=== PATIENT | female | born 1945 | race Caucasian/White ===

== ENCOUNTER 2022-08-11 13:03 | Observation (INO) ==
--- NOTE | 2022-08-11 14:11 | Emergency Department Note ---
Impression & Plan Fecal impaction, Acute dehydration, ANDRZEJ (acute kidney injury), Urinary tract infection ED Provider Note NAME: DEL KENNEDY AGE: 77 SEX: F : 1945 ARRIVES VIA: Ambulance INFORMANT: Patient, EMS, the patient's family members ED PROVIDER(S): Darrin Stubbs DO CHIEF COMPLAINT: Weakness HPI: The patient is a 77-year-old female who presented to the emergency department for an evaluation of generalized weakness. The patient has a history of underlying dementia. Apparently she has had trouble with ambulating especially over the course the last few weeks. She is also been noticing some rectal pain and constipation. Her significant other states she has had decreased p.o. intake as well. They have tried to give the patient over-the-c ounter medication without help. She has had no recent trauma as far as they know. The patient has had no changes to her medications. She is been compliant with her outpatient medications. There is been no fever or chest pain. ROS: See above HPI for pertinent positives & negatives. A total of 10 systems reviewed and were otherwise negative. PAST MEDICAL HISTORY: See Below PAST SURGICAL HISTORY: See Below FAMILY HISTORY: See Below SOCIAL HISTORY: See Below HOME MEDICATIONS: See Below ALLERGIES: See Below VITALS: See Below PHYSICAL EXAMINATION: GENERAL: Patient is awake and alert. The patient is nonanxious appearing. EYES: The conjunctivae are clear. The pupils are round and reactive. EARS, NOSE, MOUTH AND THROAT: The nose is without any evidence of any deformity. NECK: The neck is nontender and supple. RESPIRATORY: Normal respiratory effort is noted there is no evidence of wheezing rhonchi or rales CARDIOVASCULAR: Regular rate and rhythm noted there no murmurs rubs or gallops normal S1 normal S2. GASTROINTESTINAL: The abdomen is soft and mildly distended. There is diffuse tenderness to palpation but no guarding or rigidity. MUSCULOSKELETAL/EXTREMITIES: There is no evidence of gross deformity full range of motion is noted in the hips and shoulders. SKIN: There is no obvious evidence of any rash. There are no petechiae, pallor or cyanosis noted. NEUROLOGIC: Patient is awake and oriented to person and place. She recognizes her family members. Strength is symmetric but diminished. MEDICAL DECISION MAKING: The patient is a 77-year-old female who presented to the emergency department with family for an evaluation of decreased p.o. intake and lower abdominal tenderness. The patient's been having problems with constipation. Physical exam was not consistent with obstruction but the patient did have tenderness. I discussed the patient's laboratory and radiographic studies with the family. The patient was found to have a slight elevation in creatinine although I do not have a baseline to compare this to. She was treated with IV fluids. She was found to have fecal impaction on CT. I discussed his condition with the patient's . At this time he does not feel that he can manage the patient as an outpatient. He is concerned that she is not eating or drinking. He is worried that she is not doing well. For this reason I will discussed this case with the hospitalist. Triage Nursing notes reviewed. Prior medical records reviewed Vital Signs: reviewed and remarkable for hypotension. Differential diagnosis: Infection, dehydration, metabolic abnormality, hypo/hyperglycemia, electrolyte disturbance, anemia, hypoxia, cardiac sources, intracerebral event, toxicologic, neurologic, as well as other pathologies. ER treatment provided: See below Diagnostics interpreted by me: ECG: EKG was obtained in the emergency department. My interpretation is normal sinus rhythm at 78 bpm. There is no ectopy. There is no acute ST segment abnormalities noted. No previous tracing was available. Cardiac Monitoring: An order was placed for continuous cardiac monitoring. The monitor shows a rate of 82 bpm with sinus rhythm. Laboratory studies: As stated above and show below. Imaging studies: See below. Radiographic imaging was reviewed by myself Consultation(s): The case was discussed with the on-call [facility] hospitalist, Dr. Simmons. He will evaluate the patient in the emergency department for further management and disposition. Past Med/Surg History Medical History (Updated 08/11/22 @ 17:37 by Darrin Stubbs DO) Dementia GERD (gastroesophageal reflux disease) Hypertension Hypothyroid Social History Smoking Status: Never smoker Preferred Language: Fijian Feels Safe at Home: Yes Allergies Allergies Allergy/AdvReac Type Severity Reaction Status Date / Time Sulfa (Sulfonamide Allergy Unknown Verified 08/11/22 15:16 Antibiotics) paroxetine [From Paxil] AdvReac neuro Verified 08/11/22 15:16 complications cold Allergy Intermediate Hives Uncoded 08/11/22 15:16 Home Meds Home Medications Medication Instructions Recorded Confirmed aspirin 81 mg tablet,delayed 81 mg PO DAILY 08/11/22 08/11/22 release atorvastatin 10 mg tablet 10 mg PO DAILY 08/11/22 08/11/22 clonazepam 0.5 mg tablet 0.5 mg PO BID PRN Anxiety 08/11/22 08/11/22 galantamine 16 mg 24 hr 16 mg PO DAILY 08/11/22 08/11/22 capsule,extended release glycopyrrolate 2 mg tablet 2 mg PO BID 08/11/22 08/11/22 lisinopril 10 mg tablet 10 mg PO DAILY 08/11/22 08/11/22 memantine 10 mg tablet 10 mg PO DAILY 08/11/22 08/11/22 pantoprazole 40 mg tablet,delayed 40 mg PO DAILY 08/11/22 08/11/22 release trazodone 50 mg tablet 25 mg PO HS 08/11/22 08/11/22 vilazodone 20 mg tablet 20 mg PO DAILY 08/11/22 08/11/22 zolpidem 5 mg tablet 5 mg PO HS 08/11/22 08/11/22 Results & Data (ED) Vital Signs Vital Signs - 24 hr 08/11/22 13:21 08/11/22 13:35 08/11/22 14:05 Temperature 36.7 C Temperature Source Oral Pulse Rate 87 79 79 Pulse Rate [Left Finger] Pulse Rhythm Regular Pulse Rhythm [Left Finger] Pulse Strength Normal Pulse Strength [Left Finger] Respiratory Rate 20 Respiratory Effort / Characteristics Non-Labored Spontaneous Respiratory Depth Normal Respiratory Pattern Regular Blood Pressure 105/62 Blood Pressure [Right Arm] Blood Pressure Mean 76 Blood Pressure Mean [Right Arm] Blood Pressure Position Sitting Blood Pressure Position [Right Arm] Pulse Oximetry 97 96 Oxygen Delivery Method Room Air Room Air Sepsis Recent Fever Within 48 Hours No Sepsis New/Unexplained Change in Mental Status No Sepsis Action Taken by Nursing No Action Required 08/11/22 15:00 08/11/22 16:44 Temperature Temperature Source Pulse Rate Pulse Rate [Left Finger] 85 82 Pulse Rhythm Pulse Rhythm [Left Finger] Regular Pulse Strength Pulse Strength [Left Finger] Normal Respiratory Rate 20 20 Respiratory Effort / Characteristics Non-Labored Spontaneous Non-Labored Spontaneous Respiratory Depth Normal Normal Respiratory Pattern Regular Blood Pressure Blood Pressure [Right Arm] 111/54 L 107/59 L Blood Pressure Mean Blood Pressure Mean [Right Arm] 73 75 Blood Pressure Position Blood Pressure Position [Right Arm] Sitting Pulse Oximetry 97 97 Oxygen Delivery Method Room Air Room Air Sepsis Recent Fever Within 48 Hours Sepsis New/Unexplained Change in Mental Status Sepsis Action Taken by [facility] Medications Current Medication List: was personally reviewed by me Laboratory Data Attestation: I reviewed the patient's lab results. 08/11/22 14:10 08/11/22 14:10 Lab Results 08/11/22 08/11/22 08/11/22 Range/Units 14:10 14:10 14:10 WBC 8.25 (4.8-10.8) K/ul RBC 4.29 (4.20-5.40) M/uL Hgb 12.4 (12.0-16.0) g/dl Hct 37.8 (37.0-47.0) % MCV 88.1 (80.0-100.0) fL MCH 28.9 (25.0-34.0) pg MCHC 32.8 (32.0-36.0) g/dL RDW Std Deviation 44.7 (36.4-46.3) fL RDW Coeff of Dylan 13.9 (11.5-14.5) % Plt Count 237 (130-400) K/uL MPV 9.3 L (9.4-12.4) fL Immature Gran % (Auto) 0.2 % Neut % (Auto) 68.6 % Lymph % (Auto) 19.3 % Wheeler % (Auto) 10.9 % Eos % (Auto) 0.6 % Baso % (Auto) 0.4 % Neut # (Auto) 5.66 (1.40-6.50) K/uL Lymph # (Auto) 1.59 (1.2-3.4) K/uL Wheeler # (Auto) 0.90 H (0.11-0.59) K/uL Eos # (Auto) 0.05 (0-0.50) K/uL Baso # (Auto) 0.03 (0-0.2) K/uL Immature Gran # (Auto) 0.02 (0.01-0.20) K/uL PT 11.2 (9.0-12.0) Seconds INR 1.0 (0.9-1.1) APTT 22.8 (21.0-31.0) Seconds PTT Ratio 0.8 Sodium 133 L (136-145) mmol/L Potassium 4.0 (3.5-5.1) mmol/L Chloride 102 (98-107) mmol/L Carbon Dioxide 26 (21-32) mmol/L Anion Gap 5 (3-11) BUN 36 H (6-23) mg/dl Creatinine 1.74 H (0.6-1.2) mg/dl Est Cr Clr Drug Dosing 27.8 ml/min Est GFR ( Amer) 32.2 ml/min Est GFR (Non-Af Amer) 27.8 ml/min BUN/Creatinine Ratio 20.7 H (10-20) Glucose 105 H (70-99(Fasting)) mg/dl Lactate (0.4-2.0) mmol/L Calcium 10.2 (8.6-10.3) mg/dl Magnesium 2.2 (1.7-2.4) mg/dl Total Bilirubin 0.5 (0.2-1.0) mg/dl AST 14 (13-39) U/L ALT 9 (7-52) U/L Alkaline Phosphatase 75 (34-104) U/L Total Creatine Kinase 69 (26-192) U/L Troponin I High Sens 9.3 (0-14) pg/ml Total Protein 6.9 (6.0-8.3) gm/dl Albumin 3.7 (3.4-5.0) gm/dl Globulin 3.2 (2.5-4.0) gm/dl Albumin/Globulin Ratio 1.2 (0.9-2) TSH (0.300-4.500) uIu/ml Urine Color Urine Appearance (Clear) Urine pH (4.5-7.5) Ur Specific Glennie (1.000-1.030) Urine Protein (Negative) Urine Glucose (UA) (Negative) Urine Ketones (Negative) Urine Blood (Negative) Urine Nitrite (Negative) Urine Bilirubin (Negative) Urine Urobilinogen (Negative) Ur Leukocyte Esterase (Negative) Urine WBC (Auto) (0-5) /hpf Urine RBC (Auto) (0-4) /hpf U Hyaline Cast (Auto) (0-5) /lpf U Epithel Cells (Auto) (0-5) /lpf Urine Bacteria (Auto) (Negative) SARS-CoV-2, RNA, NAAT (NEGATIVE) 04/22/23 04/22/23 04/22/23 Range/Units 14:10 14:20 14:58 WBC (4.8-10.8) K/ul RBC (4.20-5.40) M/uL Hgb (12.0-16.0) g/dl Hct (37.0-47.0) % MCV (80.0-100.0) fL MCH (25.0-34.0) pg MCHC (32.0-36.0) g/dL RDW Std Deviation (36.4-46.3) fL RDW Coeff of Dylan (11.5-14.5) % Plt Count (130-400) K/uL MPV (9.4-12.4) fL Immature Gran % (Auto) % Neut % (Auto) % Lymph % (Auto) % Wheeler % (Auto) % Eos % (Auto) % Baso % (Auto) % Neut # (Auto) (1.40-6.50) K/uL Lymph # (Auto) (1.2-3.4) K/uL Wheeler # (Auto) (0.11-0.59) K/uL Eos # (Auto) (0-0.50) K/uL Baso # (Auto) (0-0.2) K/uL Immature Gran # (Auto) (0.01-0.20) K/uL PT (9.0-12.0) Seconds INR (0.9-1.1) APTT (21.0-31.0) Seconds PTT Ratio Sodium (136-145) mmol/L Potassium (3.5-5.1) mmol/L Chloride (98-107) mmol/L Carbon Dioxide (21-32) mmol/L Anion Gap (3-11) BUN (6-23) mg/dl Creatinine (0.6-1.2) mg/dl Est Cr Clr Drug Dosing ml/min Est GFR ( Amer) ml/min Est GFR (Non-Af Amer) ml/min BUN/Creatinine Ratio (10-20) Glucose (70-99(Fasting)) mg/dl Lactate 1.0 (0.4-2.0) mmol/L Calcium (8.6-10.3) mg/dl Magnesium (1.7-2.4) mg/dl Total Bilirubin (0.2-1.0) mg/dl AST (13-39) U/L ALT (7-52) U/L Alkaline Phosphatase (34-104) U/L Total Creatine Kinase (26-192) U/L Troponin I High Sens (0-14) pg/ml Total Protein (6.0-8.3) gm/dl Albumin (3.4-5.0) gm/dl Globulin (2.5-4.0) gm/dl Albumin/Globulin Ratio (0.9-2) TSH 0.459 (0.300-4.500) uIu/ml Urine Color Urine Appearance (Clear) Urine pH (4.5-7.5) Ur Specific Glennie (1.000-1.030) Urine Protein (Negative) Urine Glucose (UA) (Negative) Urine Ketones (Negative) Urine Blood (Negative) Urine Nitrite (Negative) Urine Bilirubin (Negative) Urine Urobilinogen (Negative) Ur Leukocyte Esterase (Negative) Urine WBC (Auto) (0-5) /hpf Urine RBC (Auto) (0-4) /hpf U Hyaline Cast (Auto) (0-5) /lpf U Epithel Cells (Auto) (0-5) /lpf Urine Bacteria (Auto) (Negative) SARS-CoV-2, RNA, NAAT NEGATIVE (NEGATIVE) 08/11/22 Range/Units 15:40 WBC (4.8-10.8) K/ul RBC (4.20-5.40) M/uL Hgb (12.0-16.0) g/dl Hct (37.0-47.0) % MCV (80.0-100.0) fL MCH (25.0-34.0) pg MCHC (32.0-36.0) g/dL RDW Std Deviation (36.4-46.3) fL RDW Coeff of Dylan (11.5-14.5) % Plt Count (130-400) K/uL MPV (9.4-12.4) fL Immature Gran % (Auto) % Neut % (Auto) % Lymph % (Auto) % Wheeler % (Auto) % Eos % (Auto) % Baso % (Auto) % Neut # (Auto) (1.40-6.50) K/uL Lymph # (Auto) (1.2-3.4) K/uL Wheeler # (Auto) (0.11-0.59) K/uL Eos # (Auto) (0-0.50) K/uL Baso # (Auto) (0-0.2) K/uL Immature Gran # (Auto) (0.01-0.20) K/uL PT (9.0-12.0) Seconds INR (0.9-1.1) APTT (21.0-31.0) Seconds PTT Ratio Sodium (136-145) mmol/L Potassium (3.5-5.1) mmol/L Chloride (98-107) mmol/L Carbon Dioxide (21-32) mmol/L Anion Gap (3-11) BUN (6-23) mg/dl Creatinine (0.6-1.2) mg/dl Est Cr Clr Drug Dosing ml/min Est GFR ( Amer) ml/min Est GFR (Non-Af Amer) ml/min BUN/Creatinine Ratio (10-20) Glucose (70-99(Fasting)) mg/dl Lactate (0.4-2.0) mmol/L Calcium (8.6-10.3) mg/dl Magnesium (1.7-2.4) mg/dl Total Bilirubin (0.2-1.0) mg/dl AST (13-39) U/L ALT (7-52) U/L Alkaline Phosphatase (34-104) U/L Total Creatine Kinase (26-192) U/L Troponin I High Sens (0-14) pg/ml Total Protein (6.0-8.3) gm/dl Albumin (3.4-5.0) gm/dl Globulin (2.5-4.0) gm/dl Albumin/Globulin Ratio (0.9-2) TSH (0.300-4.500) uIu/ml Urine Color Yellow Urine Appearance Turbid A (Clear) Urine pH 5.5 (4.5-7.5) Ur Specific Glennie 1.010 (1.000-1.030) Urine Protein Negative (Negative) Urine Glucose (UA) Negative (Negative) Urine Ketones Trace H (Negative) Urine Blood 1+ H (Negative) Urine Nitrite Positive A (Negative) Urine Bilirubin Negative (Negative) Urine Urobilinogen Negative (Negative) Ur Leukocyte Esterase 3+ H (Negative) Urine WBC (Auto) >30 H (0-5) /hpf Urine RBC (Auto) 5-10 H (0-4) /hpf U Hyaline Cast (Auto) 1-5 (0-5) /lpf U Epithel Cells (Auto) >30 H (0-5) /lpf Urine Bacteria (Auto) 3+ H (Negative) SARS-CoV-2, RNA, NAAT (NEGATIVE) Administered Medications Discontinued Medications Sodium Chloride (Nss) 500 mls @ 999 mls/hr IV .Q31M SANYA Stop: 08/11/22 14:45 Last Infusion: 08/11/22 16:45 Dose: 0 mls/hr Documented By: Admin: 08/11/22 14:28 Dose: 999 mls/hr Documented By: TERRELL Imaging Data Attestation: I personally reviewed and interpreted this imaging study as follows: My Impression: 1 view chest x-ray was obtained in the emergency department. My interpretation is no free air, final report below. CT of the head was obtained. My interpretation is no intracranial hemorrhage or mass effect, final report below. Radiologist's Impression: Chest X-Ray 08/11/22 14:05 XR chest 1V portable HISTORY: 77 years-old Female weakness acute weakness COMPARISON: None TECHNIQUE: AP view of the chest FINDINGS: Cardiomediastinal and hilar silhouettes are within normal limits. No pneumothorax, pleural effusion, airspace consolidation or overt pulmonary edema. Punctate calcified granulomata project over the right upper lung. IMPRESSION: No acute process. ACT 112: Negative or not required by law. The above report was generated using voice recognition software. It may contain grammatical, syntax or spelling errors. Electronically signed by: Paul Buitrago M.D. 08/11/2022 2:[address] 08/11/22 14:05 CT head/brain wo con CLINICAL HISTORY: 77 years-old Female with weakness. Acute weakness TECHNIQUE: Multiple axial CT images of the head were obtained without contrast. A dose lowering technique was utilized adhering to the principles of ALARA. CT DOSE: 537.48 mGy.cm COMPARISON: None. FINDINGS: No acute intracranial hemorrhage, midline shift, intracranial mass, hydrocephalus, territorial ischemia or abnormal extra-axial collection. Involutional changes with chronic microvascular ischemic disease. Limited study secondary to positioning. 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 The calvarium is intact. The paranasal sinuses, mastoid air cells, and middle ear cavities are clear. IMPRESSION: No acute intracranial abnormality. ACT 112: Negative or not required by law. The above report was generated using voice recognition software. It may contain grammatical, syntax or spelling errors. Electronically signed by: Paul Buitrago M.D. 08/11/2022 4:47 PM Abdomen/Pelvis CT 08/11/22 15:[address] WITHOUT CONTRAST CT DOSE: 388.78 mGy.cm HISTORY: Acute lower abdominal pain lower pain TECHNIQUE: Multiaxial CT images of the abdomen and pelvis were performed without contrast. A dose lowering technique was utilized adhering to the principles of ALARA. COMPARISON STUDY: None. FINDINGS: Lung bases are clear. No pneumatosis or pneumoperitoneum. The unenhanced spleen, moderately atrophic pancreas, adrenal glands and liver are unremarkable. Cholecystectomy. Unremarkable kidneys and urinary bladder. Ventral wall thickening of the rectum with perirectal inflammation and trace free pelvic fluid. Stool volume of the rectum measures up to 7.9 cm transversely. Moderate fecal retention. Colonic diverticulosis. No evidence of acute appendicitis. Unremarkable soft tissues. No acute fracture. IMPRESSION: 1. Constipation with stercoral proctitis. 2. No bowel obstruction or pneumoperitoneum. 3. Colonic diverticulosis. 4. Cholecystectomy. ACT 112: Negative or not required by law. The above report was generated using voice recognition software. It may contain grammatical, syntax or spelling errors. Electronically signed by: Paul Buitrago M.D. 08/11/2022 5:05 PM Discharge Plan Visit Data Chief Complaint: Weakness ED Provider: Darrin Stubbs Discharge Problem: Fecal impaction, Acute dehydration, ANDRZEJ (acute kidney injury), Urinary tract in fection Patient Disposition: Being Evaluated by Hospitalist Forms Stand Alone Forms: My [facility] Brenda Ardian Prescriptions Prescriptions: No Action lisinopril 10 mg tablet 10 mg PO DAILY trazodone 50 mg tablet 25 mg PO HS atorvastatin 10 mg tablet 10 mg PO DAILY pantoprazole 40 mg tablet,delayed release (DR/EC) 40 mg PO DAILY zolpidem 5 mg tablet 5 mg PO HS glycopyrrolate 2 mg tablet 2 mg PO BID memantine 10 mg tablet 10 mg PO DAILY galantamine 16 mg capsule,ext rel. pellets 24 hr 16 mg PO DAILY vilazodone 20 mg tablet 20 mg PO DAILY clonazepam 0.5 mg tablet 0.5 mg PO BID PRN (Reason: Anxiety) aspirin [Aspirin Low-Strength] 81 mg Tablet,Delayed Release (Dr/Ec) 81 mg PO DAILY Referrals Referrals: Андрей Chiang [Primary Care Provider] -
[2022-08-11] MEDS ORDERED: SODIUM CHLORIDE 0.9% 500 ML IV SCH (14:15)
--- NOTE | 2022-08-11 14:21 | XRay Report ---
XR chest 1V portable HISTORY: 77 years-old Female weakness acute weakness COMPARISON: None TECHNIQUE: AP view of the chest FINDINGS: Cardiomediastinal and hilar silhouettes are within normal limits. No pneumothorax, pleural effusion, airspace consolidation or overt pulmonary edema. Punctate calcified granulomata project over the righ t upper lung. IMPRESSION: No acute process. ACT 112: Negative or not required by law. The above report was generated using voice recognition software. It may contain grammatical, syntax o r spelling errors. Electronically signed by: Paul Buitrago M.D. 08/11/2022 2:20 PM
[2022-08-11 14:45] LABS: Basophils # (auto) 0.03 K/uL (0-0.2); Basophils % (auto) 0.4 %; Eosinophils # (auto) 0.05 K/uL (0-0.50); Eosinophils % (auto) 0.6 %; Hematocrit (blood only) 37.8 % (37.0-47.0); Hemoglobin 12.4 g/dl (12.0-16.0); Immature Granulocytes # (auto) 0.02 K/uL (0.01-0.20); Immature Granulocytes % (auto) 0.2 %; Lymphocytes # (auto) 1.59 K/uL (1.2-3.4); Lymphocytes % (auto) 19.3 %; Mean Corpuscular Hemoglobin 28.9 pg (25.0-34.0); Mean Corpuscular Hgb Conc 32.8 g/dL (32.0-36.0); Mean Corpuscular Volume 88.1 fL (80.0-100.0); Mean Platelet Volume 9.3 fL (9.4-12.4); Monocytes % (auto) 10.9 %; Neutrophils # (auto) 5.66 K/uL (1.40-6.50); Neutrophils % (auto) 68.6 %; Platelet Count 237 K/uL (130-400); RDW Coefficient of Variation 13.9 % (11.5-14.5); RDW Standard Deviation 44.7 fL (36.4-46.3); Red Blood Count 4.29 M/uL (4.20-5.40); White Blood Count 8.25 K/ul (4.8-10.8)
[2022-08-11 15:01] LABS: Albumin Globulin Ratio 1.2 (0.9-2); Albumin Level 3.7 gm/dl (3.4-5.0); BUN Creatinine Ratio 20.7 (10-20); Bilirubin,Total 0.5 mg/dl (0.2-1.0); Calcium 10.2 mg/dl (8.6-10.3); Creatinine Clr Calc Pharmacy 27.8 ml/min; Est GFR (African American) 32.2 ml/min; Est GFR (Non-African American) 27.8 ml/min; Globulin 3.2 gm/dl (2.5-4.0); Magnesium 2.2 mg/dl (1.7-2.4); Total Protein 6.9 gm/dl (6.0-8.3)
[2022-08-11 15:07] LABS: Troponin I High Sensitivity 9.3 pg/ml (0-14)
[2022-08-11 15:16] LABS: Partial Thromboplastin Ratio 0.8; Partial Thromboplastin Time 22.8 Seconds (21.0-31.0); Prothrombin Time 11.2 Seconds (9.0-12.0)
[2022-08-11 16:06] LABS: Appearance Urine Turbid (Clear); Bacteria Urine Automated 3+ (Negative); Bilirubin Urine Negative (Negative); Blood Urine 1+ (Negative); Color Urine Yellow; Epithelial Cell Urine Auto >30 /lpf (0-5); Glucose Urine UA Negative (Negative); Ketones Urine Trace (Negative); Leukocyte Esterase Urine 3+ (Negative); Nitrite Urine Positive (Negative); Protein Urine Negative (Negative); Urobilinogen Urine Negative (Negative); WBC Urine Automated >30 /hpf (0-5); pH Urine 5.5 (4.5-7.5)
--- NOTE | 2022-08-11 16:50 | CT Scan Report ---
CT head/brain wo con CLINICAL HISTORY: 77 years-old Female with weakness. Acute weakness TECHNIQUE: Multiple axial CT images of the head were obtained without contrast. A dose lowering tech nique was utilized adhering to the principles of ALARA. CT DOSE: 537.48 mGy.cm COMPARISON: None. FINDINGS: No acute intracranial hemorrhage, midline shift, intracranial mass, hydrocephalus, territorial ischem ia or abnormal extra-axial collection. Involutional changes with chronic microvascular ischemic disea se. Limited study secondary to positioning. Suggested chronic infarcts in the periventricular right f rontal lobe. The calvarium is intact. The paranasal sinuses, mastoid air cells, and middle ear cavities are clear . IMPRESSION: No acute intracranial abnormality. ACT 112: Negative or not required by law. The above report was generated using voice recognition software. It may contain grammatical, syntax o r spelling errors. Electronically signed by: Paul Buitrago M.D. 08/11/2022 4:47 PM
--- NOTE | 2022-08-11 17:08 | CT Scan Report ---
ABDOMEN AND PELVIS CT WITHOUT CONTRAST CT DOSE: 388.78 mGy.cm HISTORY: Acute lower abdominal pain lower pain TECHNIQUE: Multiaxial CT images of the abdomen and pelvis were performed without contrast. A dose lo wering technique was utilized adhering to the principles of ALARA. COMPARISON STUDY: None. FINDINGS: Lung bases are clear. No pneumatosis or pneumoperitoneum. The unenhanced spleen, moderately atrophic pancreas, adrenal glands and liver are unremarkable. Cholecystectomy. Unremarkable kidneys and urinary bladder. Ventral wall thickening of the rectum with perirectal inflammation and trace jesse e pelvic fluid. Stool volume of the rectum measures up to 7.9 cm transversely. Moderate fecal retenti on. Colonic diverticulosis. No evidence of acute appendicitis. Unremarkable soft tissues. No acute fr acture. IMPRESSION: 1. Constipation with stercoral proctitis. 2. No bowel obstruction or pneumoperitoneum. 3. Colonic diverticulosis. 4. Cholecystectomy. ACT 112: Negative or not required by law. The above report was generated using voice recognition software. It may contain grammatical, syntax o r spelling errors. Electronically signed by: Paul Buitrago M.D. 08/11/2022 5:05 PM
[2022-08-11] MEDS ORDERED: cefTRIAXone SODIUM 2,000 MG/70 ML BAG IV STA (17:35)
[2022-08-11] MEDS ORDERED: LACTULOSE SYRUP 20 GM/30 ML UDC PO ONE (17:42)
[2022-08-11 18:31] LABS: Basophils # (auto) 0.03 K/uL (0-0.2); Basophils % (auto) 0.4 %; Eosinophils # (auto) 0.08 K/uL (0-0.50); Eosinophils % (auto) 1.1 %; Hematocrit (blood only) 34.6 % (37.0-47.0); Hemoglobin 11.6 g/dl (12.0-16.0); Immature Granulocytes # (auto) 0.02 K/uL (0.01-0.20); Immature Granulocytes % (auto) 0.3 %; Lymphocytes # (auto) 1.37 K/uL (1.2-3.4); Lymphocytes % (auto) 18.9 %; Mean Corpuscular Hemoglobin 29.3 pg (25.0-34.0); Mean Corpuscular Hgb Conc 33.5 g/dL (32.0-36.0); Mean Corpuscular Volume 87.4 fL (80.0-100.0); Mean Platelet Volume 9.4 fL (9.4-12.4); Monocytes # (auto) 0.79 K/uL (0.11-0.59); Monocytes % (auto) 10.9 %; Neutrophils # (auto) 4.95 K/uL (1.40-6.50); Neutrophils % (auto) 68.4 %; Platelet Count 220 K/uL (130-400); RDW Coefficient of Variation 13.7 % (11.5-14.5); RDW Standard Deviation 43.9 fL (36.4-46.3); Red Blood Count 3.96 M/uL (4.20-5.40); White Blood Count 7.24 K/ul (4.8-10.8)
--- NOTE | 2022-08-11 18:34 | History & Physical Report ---
Date of Service August 11, 2022 Assessment & Plan (1) Fecal impaction: (2) Urinary tract infection: (3) ANDRZEJ (acute kidney injury): Plan: 77-year-old female with history of dementia, hypertension, hypothyroidism, GERD presenting with weakness x1 week. Fecal impaction Tapwater enema Lactulose p.o. next UTI Urine culture: Pending Blood cultures: Pending Ceftriaxone IV 2 g daily Acute kidney injury IV NSS Monitor creatinine Dementia At baseline Hypothyroidism TSH normal Hypertension Blood pressure on the lower side Hold lisinopril IV Fluids Full code Disposition PT and OT evaluation May need acute rehab versus SNF plan of care discussed with patient and her partner Avery at the bedside in detail and at length all questions answered they are understanding, agreeable, comfortable with the plan of care History of Present Illness Primary Care Provider: Андрей Chiang 77-year-old female with history of dementia, hypertension, hypothyroidism, GERD presenting with weakness x1 week. History mostly obtained from patient's Avery at the bedside. Patient for the past week has been having progressive weakness, associated with constipation, and feeling cold. Also reports some abdominal pain, no nausea or vomiting, no chest pain, no palpitations, dizziness, etc. At the ER, patient received with stable vital signs overall. CT abdomen pelvis revealing fecal impaction, but no signs of obstruction. Urinalysis showing possible UTI. On exam, patient seen resting in bed, not in distress, comfortable, repeatedly saying I need to go to the bathroom. Denies active chest pain, shortness of breath, abdominal pain, nausea or vomiting, etc. No other symptoms Allergies Allergy/AdvReac Type Severity Reaction Status Date / Time Sulfa (Sulfonamide Allergy Unknown Verified 08/11/22 15:16 Antibiotics) paroxetine [From Paxil] AdvReac neuro Verified 08/11/22 15:16 complications cold Allergy Intermediate Hives Uncoded 08/11/22 15:16 Home Medications Medication Instructions Recorded Confirmed Type aspirin 81 mg tablet,delayed 81 mg PO DAILY 08/11/22 08/11/22 History release atorvastatin 10 mg tablet 10 mg PO DAILY 08/11/22 08/11/22 History clonazepam 0.5 mg tablet 0.5 mg PO BID PRN Anxiety 08/11/22 08/11/22 History galantamine 16 mg 24 hr 16 mg PO DAILY 08/11/22 08/11/22 History capsule,extended release glycopyrrolate 2 mg tablet 2 mg PO BID 08/11/22 08/11/22 History lisinopril 10 mg tablet 10 mg PO DAILY 08/11/22 08/11/22 History memantine 10 mg tablet 10 mg PO DAILY 08/11/22 08/11/22 History pantoprazole 40 mg tablet,delayed 40 mg PO DAILY 08/11/22 08/11/22 History release trazodone 50 mg tablet 25 mg PO HS 08/11/22 08/11/22 History vilazodone 20 mg tablet 20 mg PO DAILY 08/11/22 08/11/22 History zolpidem 5 mg tablet 5 mg PO HS 08/11/22 08/11/22 History Past Med/Surg History Medical History (Updated 08/11/22 @ 17:37 by Darrin Stubbs DO) Dementia GERD (gastroesophageal reflux disease) Hypertension Hypothyroid Social History Smoking Status: Never smoker Hx Alcohol Use: No Hx Substance Use: No Preferred Language: Cypriot Beliefs That Will Affect Care: None Current Living Situation: Other Current Living Situation Comment: Caregiver Feels Safe at Home: Yes Safety Concerns: Feels Safe At This Time Assistive Devices: Walker Review of Systems Review of Systems: all noted and negative except for above Physical Exam Physical Exam: General- oriented x 2, not in distress, speaks in sentences with no effort or accessory muscle use Head- atraumatic Eyes- PERRL, EOMI, anicteric ENT- oropharynx clear Neck- supple, no JVD, no adenopathy, no thyromegaly; carotids +2/2, no bruits appreciated Lungs- clear to auscultation bilaterally, no rales/wheezes Heart- normal rate, regular rhythm; no murmur, no gallop, no rub appreciated Abdomen- normal bowel sounds, nondistended, soft, nontender, no masses or hepatosplenomegaly Extremities- no pretibial edema, no calf tenderness; peripheral pulses intact Neuro- alert, oriented x 2; CN 2-12 grossly intact; motor 5/5 bilaterally;sensation 100% on all extremities; no other gross focal neurologic deficits Skin- warm & dry Results & Data Results & Data Vital Signs (Past 12 Hours) Vital Signs Temp Pulse Pulse Resp BP BP Pulse Ox 08/11/22 17:40 84 08/11/22 16:44 82 20 107/59 L 97 08/11/22 15:00 85 20 111/54 L 97 08/11/22 14:05 79 96 08/11/22 13:35 79 08/11/22 13:21 36.7 C 87 20 105/62 97 O2 Del Method 08/11/22 17:40 08/11/22 16:44 Room Air 08/11/22 15:00 Room Air 08/11/22 14:05 Room Air 08/11/22 13:35 08/11/22 13:21 Room Air all noted and reviewed including below Code Status & VTE Plan VTE Prophylaxis Plan VTE Prophylaxis will be ordered: Yes (2) Urinary tract infection Hematuria presence: without hematuria Urinary tract infection type: site unspecified Qualified Code(s): N39.0 - Urinary tract infection, site not specified
[2022-08-11] MEDS: SODIUM CHLORIDE 0.9% 1000ML 1,000 ML IV ONE ×2 (18:36→20:04)
[2022-08-11] MEDS: D5W AND NSS 1,000 ML IV SCH ×2 (18:36→21:23)
[2022-08-11 18:40] LABS: BUN Creatinine Ratio 23.5 (10-20); Calcium 9.8 mg/dl (8.6-10.3); Creatinine Clr Calc Pharmacy 35.5 ml/min; Est GFR (African American) 43.4 ml/min; Est GFR (Non-African American) 37.4 ml/min; Potassium 4.2 mmol/L (3.5-5.1)
[2022-08-11] MEDS: ACETAMINOPHEN 325 MG TAB PO PRN (21:23)
[2022-08-11] MEDS: ZOLPIDEM TARTRATE 5 MG TAB PO PRN (21:28)
[2022-08-12 06:25] LABS: Basophils # (auto) 0.01 K/uL (0-0.2); Basophils % (auto) 0.2 %; Eosinophils # (auto) 0.08 K/uL (0-0.50); Eosinophils % (auto) 1.4 %; Hematocrit (blood only) 32.7 % (37.0-47.0); Hemoglobin 10.9 g/dl (12.0-16.0); Immature Granulocytes # (auto) 0.02 K/uL (0.01-0.20); Immature Granulocytes % (auto) 0.4 %; Lymphocytes # (auto) 1.29 K/uL (1.2-3.4); Lymphocytes % (auto) 22.7 %; Mean Corpuscular Hemoglobin 29.2 pg (25.0-34.0); Mean Corpuscular Hgb Conc 33.3 g/dL (32.0-36.0); Mean Corpuscular Volume 87.7 fL (80.0-100.0); Mean Platelet Volume 9.2 fL (9.4-12.4); Monocytes # (auto) 0.74 K/uL (0.11-0.59); Neutrophils # (auto) 3.55 K/uL (1.40-6.50); Neutrophils % (auto) 62.3 %; Platelet Count 204 K/uL (130-400); RDW Coefficient of Variation 13.6 % (11.5-14.5); RDW Standard Deviation 43.7 fL (36.4-46.3); Red Blood Count 3.73 M/uL (4.20-5.40); White Blood Count 5.69 K/ul (4.8-10.8)
[2022-08-12 06:41] LABS: BUN Creatinine Ratio 23.3 (10-20); Calcium 9.4 mg/dl (8.6-10.3); Creatinine Clr Calc Pharmacy 56.2 ml/min; Est GFR (African American) 75.5 ml/min; Est GFR (Non-African American) 65.2 ml/min; Potassium 4.1 mmol/L (3.5-5.1)
[2022-08-12] MEDS: D5W AND NSS 1,000 ML IV SCH ×2 (08:22→21:57)
[2022-08-12] MEDS: POLYETHYLENE (MIRALAX) 17 GM PACK PO SCH (08:22)
[2022-08-12] MEDS: PHENAZOPYRIDINE HCL 100 MG TAB PO PRN (08:27)
--- NOTE | 2022-08-12 10:44 | XRay Report ---
KUB HISTORY: Generalized abdominal pain ff up, fecal impaction COMPARISON: CT 08/11/2022 FINDINGS: Nonobstructive bowel gas pattern. Cholecystectomy. There is persistent fecal retention of t he rectum. No renal calculi. No ureteral calculi. No pneumoperitoneum or pneumatosis. No fracture. IMPRESSION: 1. Nonobstructive bowel gas pattern. 2. Persistent fecal retention of the rectum which appears moderate to extensive. ACT 112: Negative or not required by law. The above report was generated using voice recognition software. It may contain grammatical, syntax o r spelling errors. Electronically signed by: Paul Buitrago M.D. 08/12/2022 10:42 AM
[2022-08-12] MEDS: cefTRIAXone SODIUM 2,000 MG in DEXTROSE 5% 50 ML IV SCH (11:46)
[2022-08-12] MEDS: ACETAMINOPHEN 325 MG TAB PO PRN (12:09)
[2022-08-12] MEDS ORDERED: PNEUMOCOCCAL POLYSACCHARIDES 25 MCG/0.5 ML VIAL/SYR IM ONE (12:19)
--- NOTE | 2022-08-12 14:00 | Electrocardiogram Report ---
Test Reason : Blood Pressure : / mmHG Vent. Rate : 078 BPM Atrial Rate : 078 BPM P-R Int : 114 ms QRS Dur : 088 ms QT Int : 358 ms P-R-T Axes : 041 026 006 degrees QTc Int : 408 ms Normal sinus rhythm Normal ECG No previous ECGs available Confirmed by Darrin Mora ([id number]) on 08/12/2022 2:00:04 PM Referred By: REFERRED SELF Confirmed By:Darrin Mora
--- NOTE | 2022-08-12 15:42 | Hospitalist Progress Note ---
Date of Service August 12, 2022 Assessment & Plan (1) Fecal impaction: (2) Urinary tract infection: (3) ANDRZEJ (acute kidney injury): Plan: 77-year-old female with history of dementia, hypertension, hypothyroidism, GERD presenting with weakness x1 week. Fecal impaction repeat KUB: persistent fecal impaction (10am) patient has had 2 BMs since no nausea continue Laxatives repeat KUB tomorrow UTI Urine culture: E coli Blood cultures: Pending continue Ceftriaxone IV 2 g daily Acute kidney injury IV NSS -- crea improved Dementia At baseline Hypothyroidism TSH normal Hypertension Blood pressure on the lower side Hold lisinopril IV Fluids Full code Disposition PT and OT evaluation May need acute rehab versus SNF plan of care discussed with patient and her daughter at the bedside in detail and at length all questions answered they are understanding, agreeable, comfortable with the plan of care Admission and Anticipated Discharge Date Admission Date: August 11, 2022 Subjective ff up for UTI, etc seen resting in bed, comfortable oriented x 2, answers most questions appropriately daughter at bedside visiting states she feels improved compared to yesterday still having burning sensation around the bladder/urethra (+) BMs today no nausea no fever/chills no chest pain, dyspnea, palpitations, dizziness no other symptoms Review of Systems Review of Systems: all noted and negative except for above Physical Exam Physical Exam: General- oriented x 2, not in distress, speaks in sentences with no effort or accessory muscle use Eyes- anicteric Neck- no JVD Lungs- clear BS BL Heart- normal rate, regular rhythm; no murmurs Abdomen- normal bowel sounds, nondistended, soft, mild suprapubic tenderness Extremities- no pretibial edema, no calf tenderness Neuro- alert, oriented x 2; no gross focal neurologic deficits Skin- warm & dry Results & Data Results & Data Vital Signs (Past 12 Hours) Vital Signs Temp Pulse Resp BP BP Pulse Ox O2 Del Method 08/12/22 14:55 36.7 C 82 18 106/67 96 Room Air 08/12/22 14:48 36.8 C 64 18 94/66 L 98 Room Air 08/12/22 12:19 Room Air 08/12/22 11:52 36.7 C 90 18 106/61 93 Room Air 08/12/22 07:52 36.5 C 94 H 18 136/73 96 Room Air all noted and reviewed including below (2) Urinary tract infection Hematuria presence: without hematuria Urinary tract infection type: site unspecified Qualified Code(s): N39.0 - Urinary tract infection, site not specified
[2022-08-12] MEDS: traZODone HCL 50 MG TAB PO SCH (20:40)
[2022-08-12] MEDS: NYSTATIN POWDER 15GM BTL EXT SCH (20:42)
[2022-08-13] MEDS: POLYETHYLENE (MIRALAX) 17 GM PACK PO SCH (08:31)
[2022-08-13] MEDS: GALANTAMINE HYDROBROMIDE 8 MG CAPER PO SCH (08:31)
[2022-08-13] MEDS: PANTOprazole 40 MG TAB PO SCH (08:31)
[2022-08-13] MEDS: ATORVASTATIN 10 MG TAB PO SCH (08:32)
[2022-08-13] MEDS: NYSTATIN POWDER 15GM BTL EXT SCH ×2 (08:32→20:09)
[2022-08-13] MEDS: MEMANTINE HCL 10 MG TAB PO SCH (08:32)
--- NOTE | 2022-08-13 09:57 | XRay Report ---
KUB HISTORY: Fecal impaction. Follow-up. COMPARISON: KUB 08/12/2022. FINDINGS: The bowel gas pattern is unremarkable. There are no dilated loops of small bowel to suggest an obstruction. No renal calculi. No ureteral calculi. No pneumoperitoneum or pneumatosis. Prior ch olecystectomy. Moderate stool within the colon is again noted. IMPRESSION: 1. Moderate stool within the rectum which is not significantly changed. 2. No evidence for a bowel obstruction. ACT 112: Negative or not required by law. Electronically signed by: Himanshu Teague M.D. 08/13/2022 9:56 AM
[2022-08-13] MEDS: PHENAZOPYRIDINE HCL 100 MG TAB PO PRN ×3 (10:41→21:53)
[2022-08-13] MEDS: D5W AND NSS 1,000 ML IV SCH ×2 (10:41→23:12)
[2022-08-13] MEDS: cefTRIAXone SODIUM 2,000 MG in DEXTROSE 5% 50 ML IV SCH (11:54)
[2022-08-13] MEDS: KETOROLAC TROMETHAMINE 15 MG/ML VIAL IV PRN ×2 (12:38→21:51)
[2022-08-13] MEDS: ACETAMINOPHEN 325 MG TAB PO PRN (16:43)
--- NOTE | 2022-08-13 19:12 | Hospitalist Progress Note ---
Date of Service August 13, 2022 Assessment & Plan (1) Fecal impaction: (2) Urinary tract infection: (3) ANDRZEJ (acute kidney injury): Plan: 77-year-old female with history of dementia, hypertension, hypothyroidism, GERD presenting with weakness x1 week. Fecal impaction repeat KUB: persistent fecal impaction (10am) patient has had 2 BMs since no nausea continue Laxatives repeat KUB tomorrow 08/13 KUB showing moderate amount of stool Soapsuds enema ordered Continue MiraLAX Repeat KUB tomorrow UTI Urine culture: E coli Blood cultures: No growth x48 hours continue Ceftriaxone IV 2 g daily Acute kidney injury IV NSS -- crea improved Dementia At baseline Hypothyroidism TSH normal Hypertension Blood pressure on the lower side Hold lisinopril IV Fluids Full code Disposition PT and OT evaluation May need acute rehab versus SNF plan of care discussed with patient and her daughter at the bedside in detail and at length all questions answered they are understanding, agreeable, comfortable with the plan of care Admission and Anticipated Discharge Date Admission Date: August 11, 2022 Subjective Follow-up for UTI, fecal impaction, etc. Seen resting in bed, comfortable, oriented, answers most questions appropriately Patient's family at the bedside visiting States she feels improved compared to admission Still having some burning sensation with urination/bladder area but improving Positive BMs, no nausea or vomiting, fevers or chills No other symptom Review of Systems Review of Systems: all noted and negative except for above Physical Exam Physical Exam: General- oriented x 3, not in distress, speaks in sentences with no effort or accessory muscle use Eyes- anicteric Neck- no JVD Lungs- clear BS BL Heart- normal rate, regular rhythm; no murmurs Abdomen- normal bowel sounds, nondistended, soft, mild suprapubic tenderness Extremities- no pretibial edema, no calf tenderness Neuro- alert, oriented x 3; no gross focal neurologic deficits Skin- warm & dry Results & Data Results & Data Vital Signs (Past 12 Hours) Vital Signs Temp Pulse Resp BP Pulse Ox O2 Del Method 08/13/22 14:48 36.6 C 85 16 133/74 96 Room Air all noted and reviewed including below (2) Urinary tract infection Hematuria presence: without hematuria Urinary tract infection type: site unspecified Qualified Code(s): N39.0 - Urinary tract infection, site not specified
[2022-08-13] MEDS: traZODone HCL 50 MG TAB PO SCH (20:09)
[2022-08-13] MEDS: clonazePAM 0.5 MG TAB PO PRN (21:52)
[2022-08-14 06:15] LABS: Basophils # (auto) 0.03 K/uL (0-0.2); Basophils % (auto) 0.6 %; Eosinophils # (auto) 0.24 K/uL (0-0.50); Eosinophils % (auto) 4.7 %; Hematocrit (blood only) 30.9 % (37.0-47.0); Hemoglobin 10.3 g/dl (12.0-16.0); Immature Granulocytes # (auto) 0.01 K/uL (0.01-0.20); Immature Granulocytes % (auto) 0.2 %; Lymphocytes # (auto) 1.36 K/uL (1.2-3.4); Lymphocytes % (auto) 26.8 %; Mean Corpuscular Hemoglobin 28.9 pg (25.0-34.0); Mean Corpuscular Hgb Conc 33.3 g/dL (32.0-36.0); Mean Corpuscular Volume 86.8 fL (80.0-100.0); Mean Platelet Volume 9.2 fL (9.4-12.4); Monocytes # (auto) 0.53 K/uL (0.11-0.59); Monocytes % (auto) 10.5 %; Neutrophils % (auto) 57.2 %; Platelet Count 203 K/uL (130-400); RDW Coefficient of Variation 13.6 % (11.5-14.5); RDW Standard Deviation 43.2 fL (36.4-46.3); Red Blood Count 3.56 M/uL (4.20-5.40); White Blood Count 5.07 K/ul (4.8-10.8)
[2022-08-14 06:32] LABS: BUN Creatinine Ratio 12.9 (10-20); Calcium 8.8 mg/dl (8.6-10.3); Creatinine Clr Calc Pharmacy 75.3 ml/min; Est GFR (African American) 100.8 ml/min; Potassium 3.7 mmol/L (3.5-5.1)
[2022-08-14] MEDS: POLYETHYLENE (MIRALAX) 17 GM PACK PO SCH (08:10)
[2022-08-14] MEDS: PHENAZOPYRIDINE HCL 100 MG TAB PO PRN ×3 (08:10→20:27)
[2022-08-14] MEDS: PANTOprazole 40 MG TAB PO SCH (08:11)
[2022-08-14] MEDS: GALANTAMINE HYDROBROMIDE 8 MG CAPER PO SCH (08:11)
[2022-08-14] MEDS: MEMANTINE HCL 10 MG TAB PO SCH (08:11)
[2022-08-14] MEDS: ATORVASTATIN 10 MG TAB PO SCH (08:11)
[2022-08-14] MEDS: ACETAMINOPHEN 500 MG TAB PO SCH ×3 (08:11→23:47)
[2022-08-14] MEDS: NYSTATIN POWDER 15GM BTL EXT SCH ×2 (08:12→22:00)
[2022-08-14] MEDS: cefTRIAXone SODIUM 2,000 MG in DEXTROSE 5% 50 ML IV SCH (11:35)
[2022-08-14] MEDS: clonazePAM 0.5 MG TAB PO PRN ×2 (11:47→20:28)
--- NOTE | 2022-08-14 13:41 | XRay Report ---
XR KUB/Abdomen 1 view CLINICAL HISTORY: ff up fecal impaction TECHNIQUE: 1 view of the abdomen was obtained. Comparison: Comparison is made to abdomen radiograph 08/13/2022 FINDINGS: Lung bases are unremarkable. Degenerative changes are seen in the visualized skeleton. The bowel gas pattern is nonobstructive. Small stool burden is seen. IMPRESSION: Small stool burden. No fecal impaction is seen. ACT 112: Negative or not required by law. Electronically signed by: Nadeem Hollis M.D. 08/14/2022 1:40 PM
--- NOTE | 2022-08-14 19:45 | Hospitalist Progress Note ---
Date of Service August 14, 2022 Assessment & Plan (1) Fecal impaction: (2) Urinary tract infection: (3) ANDRZEJ (acute kidney injury): Plan: 77-year-old female with history of dementia, hypertension, hypothyroidism, GERD presenting with weakness x1 week. Fecal impaction 08/14 Given soapsuds enema, positive BMs Repeat KUB: Fecal impaction resolved Continue MiraLAX UTI Urine culture: E coli, pansensitive Blood cultures: No growth x 48 hours continue Ceftriaxone IV 2 g daily day #3 Acute kidney injury IV NSS -- crea improved Dementia At baseline Hypothyroidism TSH normal Hypertension Resume lisinopril Full code Disposition PT and OT evaluation Lives at home with her significant other Anticipate discharge to home in 1 to 2 days plan of care discussed with patient and her difficult other at the bedside in detail and at length all questions answered they are understanding, agreeable, comfortable with the plan of care Admission and Anticipated Discharge Date Admission Date: August 11, 2022 Subjective Follow-up for UTI, fecal impaction, etc. Seen resting in bed, comfortable, not in distress Oriented x 2, answers questions appropriately States she feels improved overall compared to admission Still having burning sensation over the bladder area No fevers or chills, nausea or vomiting, abdominal pain Positive BMs No other symptom Review of Systems Review of Systems: all noted and negative except for above Physical Exam Physical Exam: General- oriented x 2, not in distress, speaks in sentences with no effort or accessory muscle use Eyes- anicteric Neck- no JVD Lungs- clear breath sounds bilaterally, no crackles or wheezing Heart- normal rate, regular rhythm; no murmurs Abdomen- normal bowel sounds, nondistended, soft, mild suprapubic tenderness Extremities- no pretibial edema, no calf tenderness Neuro- alert, oriented x 3; no gross focal neurologic deficits Skin- warm & dry Results & Data Results & Data Vital Signs (Past 12 Hours) Vital Signs Temp Pulse Resp BP Pulse Ox O2 Del Method 08/14/22 16:21 36.7 C 90 16 161/76 H 96 Room Air all noted and reviewed including below (2) Urinary tract infection Hematuria presence: without hematuria Urinary tract infection type: site unspecified Qualified Code(s): N39.0 - Urinary tract infection, site not spe cified
[2022-08-14] MEDS: traZODone HCL 50 MG TAB PO SCH (20:27)
[2022-08-14] MEDS: KETOROLAC TROMETHAMINE 15 MG/ML VIAL IV PRN (21:58)
[2022-08-14] MEDS: ZOLPIDEM TARTRATE 5 MG TAB PO PRN (21:59)
[2022-08-15] MEDS: ACETAMINOPHEN 500 MG TAB PO SCH (08:13)
[2022-08-15] MEDS: PHENAZOPYRIDINE HCL 100 MG TAB PO PRN (08:13)
[2022-08-15] MEDS: ATORVASTATIN 10 MG TAB PO SCH (08:13)
[2022-08-15] MEDS: PANTOprazole 40 MG TAB PO SCH (08:13)
[2022-08-15] MEDS: POLYETHYLENE (MIRALAX) 17 GM PACK PO SCH (08:13)
[2022-08-15] MEDS: NYSTATIN POWDER 15GM BTL EXT SCH (08:14)
[2022-08-15] MEDS: GALANTAMINE HYDROBROMIDE 8 MG CAPER PO SCH (08:14)
[2022-08-15] MEDS: MEMANTINE HCL 10 MG TAB PO SCH (08:14)
[2022-08-15] MEDS ORDERED: amLODIPine BESYLATE 5 MG TAB PO SCH (09:00)
[2022-08-15] MEDS: cefTRIAXone SODIUM 2,000 MG in DEXTROSE 5% 50 ML IV SCH (12:03)
--- NOTE | 2022-08-15 15:24 | Discharge Summary ---
Discharge Summary Date of Service August 15, 2022 Notes For Next Care Provider Patient admitted to hospital secondary to pansensitive E. coli UTI. She received 3 days of IV ceftriaxone and is being discharged on additional 5 days of Keflex. Initial admitting creatinine was 1.74 and at time of discharge was 0.6. This was felt to be secondary to dehydration. Patient also had fecal impaction which since resolved with soapsuds enemas and MiraLAX. Medication Changes From Visit Cephalexin 500 mg twice daily for additional 5 days for urinary tract infection. Florastor 250 mg once daily for additional 5 days for GI prevention. Admission HPI Per Admitting Provider 77-year-old female with history of dementia, hypertension, hypothyroidism, GERD presenting with weakness x1 week. History mostly obtained from patient's Avery at the bedside. Patient for the past week has been having progressive weakness, associated with constipation, and feeling cold. Also reports some abdominal pain, no nausea or vomiting, no chest pain, no palpitations, dizziness, etc. At the ER, patient received with stable vital signs overall. CT abdomen pelvis revealing fecal impaction, but no signs of obstruction. Urinalysis showing possible UTI. On exam, patient seen resting in bed, not in distress, comfortable, repeatedly saying I need to go to the bathroom. Denies active chest pain, shortness of breath, abdominal pain, nausea or vomiting, etc. No other symptoms Admission Exam Per Admitting Provider General- oriented x 2, not in distress, speaks in sentences with no effort or accessory muscle use Head- atraumatic Eyes- PERRL, EOMI, anicteric ENT- oropharynx clear Neck- supple, no JVD, no adenopathy, no thyromegaly; carotids +2/2, no bruits appreciated Lungs- clear to auscultation bilaterally, no rales/wheezes Heart- normal rate, regular rhythm; no murmur, no gallop, no rub appreciated Abdomen- normal bowel sounds, nondistended, soft, nontender, no masses or hepatosplenomegaly Extremities- no pretibial edema, no calf tenderness; peripheral pulses intact Neuro- alert, oriented x 2; CN 2-12 grossly intact; motor 5/5 bilaterally;sensation 100% on all extremities; no other gross focal neurologic deficits Skin- warm & dry Principal Dx & Hospital Course #1 = Principal Diagnosis (1) Fecal impaction: (2) Urinary tract infection: (3) ANDRZEJ (acute kidney injury): 77-year-old female with history of dementia, hypertension, hypothyroidism, GERD presenting with weakness x1 week. Fecal Impaction Given soapsuds enema, positive BMs Repeat KUB: Fecal impaction resolved Continue MiraLAX now with loose stool, d/c miralax UTI Urine culture: E coli, pansensitive Blood cultures: No growth x 48 hours continue Ceftriaxone IV 2 g daily day #3 will transition to oral keflex 500mg bid for additional 5 days with florastor for GI prevention Acute kidney injury IV NSS -- crea improved Dementia At baseline Hypothyroidism TSH normal Hypertension Resume lisinopril Full code Disposition D/C to home with home health services Discharge Exam Gen: WD/WN, NAD, A&O x2 HEENT: Normocephalic, atraumatic, conjunctivae moist, sclerae anicteric, mucous membranes dry Lung: Clear to Auscultation bilaterally, no wheezes/rales/rhonchi Heart: Regular rate, regular rhythm, no murmurs, rubs, or gallops Abdomen: Soft, NT, ND +BS x 4 Extremities: No edema Skin: Warm, no rash, negative turgor. Updated Medication List Medication Instructions Recorded Confirmed Type atorvastatin 10 mg tablet 10 mg PO DAILY 08/11/22 08/11/22 History galantamine 16 mg 24 hr 16 mg PO DAILY 08/11/22 08/11/22 History capsule,extended release glycopyrrolate 2 mg tablet 2 mg PO BID 08/11/22 08/11/22 History memantine 10 mg tablet 10 mg PO DAILY 08/11/22 08/11/22 History pantoprazole 40 mg tablet,delayed 40 mg PO DAILY 08/11/22 08/11/22 History release trazodone 50 mg tablet 25 mg PO HS 08/11/22 08/11/22 History vilazodone 20 mg tablet 20 mg PO DAILY 08/11/22 08/11/22 History zolpidem 5 mg tablet 5 mg PO HS 08/11/22 08/11/22 History amlodipine 5 mg tablet 5 mg PO DAILY 08/12/22 08/12/22 History clonazepam 0.5 mg tablet 0.5 mg PO BID PRN Anxiety 08/12/22 08/12/22 History Saccharomyces boulardii 250 mg 250 mg PO DAILY #5 caps 08/15/22 Rx capsule (Florastor) cephalexin 500 mg capsule 500 mg PO BID 5 days #10 caps 08/15/22 Rx Hospital Stay Data Consultations 08/11/22 17:35 ED Decision to Admit Stat Diagnostic Imagining Performed Chest X-Ray 08/11/22 14:05 XR chest 1V portable HISTORY: 77 years-old Female weakness acute weakness COMPARISON: None TECHNIQUE: AP view of the chest FINDINGS: Cardiomediastinal and hilar silhouettes are within normal limits. No pneumothorax, pleural effusion, airspace consolidation or overt pulmonary edema. Punctate calcified granulomata project over the right upper lung. IMPRESSION: No acute process. ACT 112: Negative or not required by law. The above report was generated using voice recognition software. It may contain grammatical, syntax or spelling errors. Electronically signed by: Paul Buitrago M.D. 08/11/2022 2:[address] 08/11/22 14:05 CT head/brain wo con CLINICAL HISTORY: 77 years-old Female with weakness. Acute weakness TECHNIQUE: Multiple axial CT images of the head were obtained without contrast. A dose lowering technique was utilized adhering to the principles of ALARA. CT DOSE: 537.48 mGy.cm COMPARISON: None. FINDINGS: No acute intracranial hemorrhage, midline shift, intracranial mass, hydrocephalus, territorial ischemia or abnormal extra-axial collection. Involutional changes with chronic microvascular ischemic disease. Limited study secondary to positioning. 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 The calvarium is intact. The paranasal sinuses, mastoid air cells, and middle ear cavities are clear. IMPRESSION: No acute intracranial abnormality. ACT 112: Negative or not required by law. The above report was generated using voice recognition software. It may contain grammatical, syntax or spelling errors. Electronically signed by: Paul Buitrago M.D. 08/11/2022 4:47 PM Abdomen/Pelvis CT 08/11/22 15:[address] WITHOUT CONTRAST CT DOSE: 388.78 mGy.cm HISTORY: Acute lower abdominal pain lower pain TECHNIQUE: Multiaxial CT images of the abdomen and pelvis were performed without contrast. A dose lowering technique was utilized adhering to the principles of ALARA. COMPARISON STUDY: None. FINDINGS: Lung bases are clear. No pneumatosis or pneumoperitoneum. The unenhanced spleen, moderately atrophic pancreas, adrenal glands and liver are unremarkable. Cholecystectomy. Unremarkable kidneys and urinary bladder. Ventral wall thickening of the rectum with perirectal inflammation and trace free pelvic fluid. Stool volume of the rectum measures up to 7.9 cm transversely. Moderate fecal retention. Colonic diverticulosis. No evidence of acute appendicitis. Unremarkable soft tissues. No acute fracture. IMPRESSION: 1. Constipation with stercoral proctitis. 2. No bowel obstruction or pneumoperitoneum. 3. Colonic diverticulosis. 4. Cholecystectomy. ACT 112: Negative or not required by law. The above report was generated using voice recognition software. It may contain grammatical, syntax or spelling errors. Electronically signed by: Paul Buitrago M.D. 08/11/2022 5:05 PM KUB X-Ray 08/12/22 07:51 KUB HISTORY: Generalized abdominal pain ff up, fecal impaction COMPARISON: CT 08/11/2022 FINDINGS: Nonobstructive bowel gas pattern. Cholecystectomy. There is persistent fecal retention of the rectum. No renal calculi. No ureteral calculi. No pneumoperitoneum or pneumatosis. No fracture. IMPRESSION: 1. Nonobstructive bowel gas pattern. 2. Persistent fecal retention of the rectum which appears moderate to extensive. ACT 112: Negative or not required by law. The above report was generated using voice recognition software. It may contain grammatical, syntax or spelling errors. Electronically signed by: Paul Buitrago M.D. 08/12/2022 10:42 AM KUB X-Ray 08/13/22 09:00 KUB HISTORY: Fecal impaction. Follow-up. COMPARISON: KUB 08/12/2022. FINDINGS: The bowel gas pattern is unremarkable. There are no dilated loops of small bowel to suggest an obstruction. No renal calculi. No ureteral calculi. No pneumoperitoneum or pneumatosis. Prior cholecystectomy. Moderate stool within the colon is again noted. IMPRESSION: 1. Moderate stool within the rectum which is not significantly changed. 2. No evidence for a bowel obstruction. ACT 112: Negative or not required by law. Electronically signed by: Himanshu Teague M.D. 08/13/2022 9:56 AM KUB X-Ray 08/14/22 11:03 XR KUB/Abdomen 1 view CLINICAL HISTORY: ff up fecal impaction TECHNIQUE: 1 view of the abdomen was obtained. Comparison: Comparison is made to abdomen radiograph 08/13/2022 FINDINGS: Lung bases are unremarkable. Degenerative changes are seen in the visualized skeleton. The bowel gas pattern is nonobstructive. Small stool burden is seen. IMPRESSION: Small stool burden. No fecal impaction is seen. ACT 112: Negative or not required by law. Electronically signed by: Nadeem Hollis M.D. 08/14/2022 1:40 PM Pending Results Patient Have Any Pending Studies at Discharge: No Discharge Instructions Given to Patient (Per Discharging Provider) MEDICATION CHANGES: Cephalexin 500 mg twice daily for additional 5 days for urinary tract infection. Florastor 250 mg once daily for additional 5 days for GI prevention. SUMMARY OF TEST RESULTS: You were admitted to hospital secondary for generalized weakness for 1 week. Lab evaluation revealed you had a urinary tract infection as well as dehydration. You were treated with IV fluids and IV antibiotics. He received appropriate bowel regiment who also assist with bowel movement due to fecal impaction. You are being discharged on additional 5 days of oral antibiotics. PENDING TEST RESULTS: None RECOMMENDATIONS FOR FOLLOW-UP: Follow-up with primary care provider as scheduled. Continue antibiotics in entirety. Recommend 60 to 70 ounces of water daily. If you develop constipation recommend miralax 17g mixed with water daily. OTHER INSTRUCTIONS: Seek medical attention if you have: * temperature above 101 * chest pain or trouble breathing * abdominal pain, nausea, vomiting * diarrhea, dark stools or bloody stools * any unanswered questions or concerns Call 911 if symptoms are severe. Please take good care of yourself. It has been a pleasure taking care of you. Please take care of yourself. If you have any questions regarding your recent hospitalization please contact [facility] and request gray Geoffreyist @ [phone]. Kelsea Cabello PA-C Total Time Total Time Spent Total Time Spent (In Minutes): 45 minutes Supervising Physician Co-Signing Physician Notes Patient was seen and examined independently at bedside in presence of her professor of economics. Chart reviewed. Case discussed with Kelsea PADRON and agree with the documentation above with regards to HPI, Exam and A/P. In summary, this is a 77 year old female admitted with fecal impaction which resolved with Enema. ANDRZEJ on admission resolved. She also had Ecoli UTI, pansensitive. She was treated with ceftriaxone inhouse and being discharged on keflex to complete antibiotic course. She is anxious to get discharged home and her daughter and professor of economics agree that she will do better at home. He says he will be able to take care of her at home as therapy recommended 24 hr supervision for her. She is comfortable and stable for discharge. Denies discharge needs. All questions answered.
== END 2022-08-15 15:28 | disposition home health service (06) ==
LOC: ED 13:03 → 3E 17:42 → INTOOBSV 17:42 → SUATTDRO 17:42 → 3E 20:40

== ENCOUNTER 2022-11-20 17:05 | Observation (INO) ==
--- NOTE | 2022-11-20 18:03 | Emergency Department Note ---
Impression & Plan Need for assistance with personal care ED Provider Note HISTORY OF PRESENT ILLNESS: Patient is a 77-year-old female presenting with increasing confusion and combativeness. Patient has a history of dementia and family provides history. Reports that the patient was brought in a few days ago and they were offered placement at that time, but they wanted to try and continue caring for the patient and her house. However, over the last few days the patient is becoming increasingly more combative and difficult to care for her. Family expresses concern for her safety in their own. Reports that the patient was complaining of some dysuria. Patient denies any chest pain, shortness of breath or abdominal pain. No reported falls or injuries. ROS: as above PHYSICAL EXAM: Constitutional: Patient appears in no acute distress. HENT: Head: Normocephalic and atraumatic. Eyes: EOMI, PERRL Mouth/Throat: Mucous membranes moist. Neck: Trachea midline. Neck supple. Cardiovascular: RRR, No murmurs, rubs or gallops. Intact distal pulses. Pulmonary/Chest: No respiratory distress. Breath sounds clear and equal bilaterally. No wheezes or rales. Abdominal: Abdomen soft, no tenderness, rebound or guarding. Musculoskeletal: No edema, tenderness or deformity noted. Skin: Warm and dry. No rash, erythema, pallor or cyanosis Neurological: Alert. CN II-XII grossly intact, moving all extremities equally and fully. MDM: - Vitals signs showed hypertension. - History obtained via patient's family, given patient's dementia. Patient presents with increasing confusion and combativeness. Patient has history of dementia. Family reports that over the last few days the patient is becoming i ncreasingly more combative and difficult to care for at home. Family expresses concern for her safety. Patient reportedly was complaining of some dysuria. - Chronic conditions affecting care: HTN; hypothyroidism; dementia - Differential diagnoses include, but are not limited to: UTI; pneumonia; el ectrolyte abnormality; ACS - External medical records reviewed. Patient was seen in the ER a few days ago, but family wanted to try to care for her at home. - EKG reviewed by myself showed normal sinus rhythm. Rate 70 bpm. QTc 427. No acute ischemic changes. - Laboratory workup interpreted by myself showed normal WBC; stable electrolytes; normal troponin - CXR negative for pneumonia, per my interpretation - COVID negative - Patient given her prescribed clonazepam 0.5 mg PO, as she was getting more restless in the ER. - UA negative for infection - Family expresses concern about patient's inability to care for herself and is inquiring about placement. Patient is unable to be placed from the ER, given the late hour of the evening and will be admitted to the hospitalist service - Discussion was had with social media marketer about patient's case and need for admission for placement. - Hospitalist, Dr. Ribeiro, consulted for admission - Patient admitted to [facility] Hospitalist service for further evaluation and management. ASSESSMENT AND PLAN: Diagnosis: need for assistance with personal care Plan: admit Past Med/Surg History Medical History Dementia GERD (gastroesophageal reflux disease) Hypertension Hypothyroid Social History Smoking Status: Unknown if ever smoked Hx Alcohol Use: No Hx Substance Use: No Preferred Language: Turkmen Communication Ability: Effective Beliefs That Will Affect Care: None Current Living Situation: Other Current Living Situation Comment: Caregiver Feels Safe at Home: Yes Assistive Devices: Cane and Walker Allergies Allergies Allergy/AdvReac Type Severity Reaction Status Date / Time Sulfa (Sulfonamide Allergy Unknown Verified 11/15/22 20:05 Antibiotics) paroxetine [From Paxil] AdvReac neuro Verified 11/15/22 20:05 complications cold Allergy Intermediate Hives Uncoded 11/15/22 20:05 Home Meds Home Medications Medication Instructions Recorded Confirmed atorvastatin 10 mg tablet 10 mg PO DAILY 08/11/22 11/20/22 glycopyrrolate 2 mg tablet 2 mg PO BID 08/11/22 11/20/22 memantine 10 mg tablet 10 mg PO DAILY 08/11/22 11/20/22 pantoprazole 40 mg tablet,delayed 40 mg PO DAILY 08/11/22 11/20/22 release trazodone 50 mg tablet 25 mg PO HS 08/11/22 11/20/22 vilazodone 20 mg tablet 20 mg PO DAILY 08/11/22 11/20/22 amlodipine 5 mg tablet 5 mg PO DAILY 08/12/22 11/20/22 clonazepam 0.5 mg tablet 0.5 mg PO BID PRN Anxiety 08/12/22 11/20/22 furosemide 20 mg tablet 20 mg PO DAILY PRN for swelling 11/15/22 11/15/22 galantamine 16 mg 24 hr 16 mg PO DAILY 11/15/22 11/20/22 capsule,extended release zolpidem 5 mg tablet 5 mg PO HS 11/15/22 11/20/22 linaclotide 72 mcg capsule 72 mcg PO DAILY 11/20/22 11/20/22 (Linzess) mirtazapine 7.5 mg tablet 7.5 mg PO HS 11/20/22 11/20/22 Results & Data (ED) Vital Signs Vital Signs - 24 hr 11/20/22 17:13 11/20/22 19:21 Temperature 36.7 C Temperature Source Oral Pulse Rate 85 Pulse Rate [Right Brachial] 67 Pulse Rhythm Regular Pulse Rhythm [Right Brachial] Regular Pulse Strength Normal Pulse Strength [Right Brachial] Normal Respiratory Rate 18 16 Respiratory Effort / Characteristics Non-Labored Spontaneous Respiratory Depth Normal Respiratory Pattern Regular Blood Pressure 160/87 H Blood Pressure [Right Arm] 145/82 H Blood Pressure Mean 111 Blood Pressure Mean [Right Arm] 103 Blood Pressure Position Sitting Blood Pressure Position [Right Arm] Lying Pulse Oximetry 94 97 Oxygen Delivery Method Room Air Room Air Sepsis Recent Fever Within 48 Hours No Sepsis New/Unexplained Change in Mental Status No Sepsis Action Taken by Nursing No Action Required Laboratory Data 11/20/22 18:13 11/20/22 18:13 Lab Results 11/20/22 11/20/22 11/20/22 Range/Units 18:13 18:13 18:17 WBC 6.09 (4.8-10.8) K/ul RBC 3.98 L (4.20-5.40) M/uL Hgb 11.5 L (12.0-16.0) g/dl Hct 34.4 L (37.0-47.0) % MCV 86.4 (80.0-100.0) fL MCH 28.9 (25.0-34.0) pg MCHC 33.4 (32.0-36.0) g/dL RDW Std Deviation 38.5 (36.4-46.3) fL RDW Coeff of Dylan 12.0 (11.5-14.5) % Plt Count 200 (130-400) K/uL MPV 9.8 (9.4-12.4) fL Immature Gran % (Auto) 0.2 % Neut % (Auto) 53.4 % Lymph % (Auto) 33.2 % [place] % (Auto) 8.4 % Eos % (Auto) 4.3 % Baso % (Auto) 0.5 % Neut # (Auto) 3.26 (1.40-6.50) K/uL Lymph # (Auto) 2.02 (1.2-3.4) K/uL [place] # (Auto) 0.51 (0.11-0.59) K/uL Eos # (Auto) 0.26 (0-0.50) K/uL Baso # (Auto) 0.03 (0-0.2) K/uL Immature Gran # (Auto) 0.01 (0.01-0.20) K/uL Sodium 140 (136-145) mmol/L Potassium 3.9 (3.5-5.1) mmol/L Chloride 107 (98-107) mmol/L Carbon Dioxide 27 (21-32) mmol/L Anion Gap 6 (3-11) BUN 22 (6-23) mg/dl Creatinine 0.84 (0.6-1.2) mg/dl Est Cr Clr Drug Dosing 54.0 ml/min Est GFR ( Amer) 77.7 ml/min Est GFR (Non-Af Amer) 67.0 ml/min BUN/Creatinine Ratio 26.2 H (10-20) Glucose 111 H (70-99(Fasting)) mg/dl Calcium 10.2 (8.6-10.3) mg/dl Magnesium 1.9 (1.7-2.4) mg/dl Total Bilirubin 0.3 (0.2-1.0) mg/dl AST 17 (13-39) U/L ALT 11 (7-52) U/L Alkaline Phosphatase 77 (34-104) U/L Troponin I High Sens 4.5 (0-14) pg/ml Total Protein 6.9 (6.0-8.3) gm/dl Albumin 3.9 (3.4-5.0) gm/dl Globulin 3.0 (2.5-4.0) gm/dl Albumin/Globulin Ratio 1.3 (0.9-2) Urine Color Yellow Urine Appearance Clear (Clear) Urine pH 5.5 (4.5-7.5) Ur Specific [place] 1.016 (1.000-1.030) Urine Protein Negative (Negative) Urine Glucose (UA) Negative (Negative) Urine Ketones Negative (Negative) Urine Blood 1+ H (Negative) Urine Nitrite Negative (Negative) Urine Bilirubin Negative (Negative) Urine Urobilinogen Negative (Negative) Ur Leukocyte Esterase Negative (Negative) Urine WBC (Auto) 1-5 (0-5) /hpf Urine RBC (Auto) 0-4 (0-4) /hpf U Hyaline Cast (Auto) 1-5 (0-5) /lpf U Epithel Cells (Auto) 10-20 H (0-5) /lpf Urine Bacteria (Auto) Negative (Negative) SARS-CoV-2, RNA, NAAT (NEGATIVE) 11/20/22 Range/Units 19:06 WBC (4.8-10.8) K/ul RBC (4.20-5.40) M/uL Hgb (12.0-16.0) g/dl Hct (37.0-47.0) % MCV (80.0-100.0) fL MCH (25.0-34.0) pg MCHC (32.0-36.0) g/dL RDW Std Deviation (36.4-46.3) fL RDW Coeff of Dylan (11.5-14.5) % Plt Count (130-400) K/uL MPV (9.4-12.4) fL Immature Gran % (Auto) % Neut % (Auto) % Lymph % (Auto) % [place] % (Auto) % Eos % (Auto) % Baso % (Auto) % Neut # (Auto) (1.40-6.50) K/uL Lymph # (Auto) (1.2-3.4) K/uL [place] # (Auto) (0.11-0.59) K/uL Eos # (Auto) (0-0.50) K/uL Baso # (Auto) (0-0.2) K/uL Immature Gran # (Auto) (0.01-0.20) K/uL Sodium (136-145) mmol/L Potassium (3.5-5.1) mmol/L Chloride (98-107) mmol/L Carbon Dioxide (21-32) mmol/L Anion Gap (3-11) BUN (6-23) mg/dl Creatinine (0.6-1.2) mg/dl Est Cr Clr Drug Dosing ml/min Est GFR ( Amer) ml/min Est GFR (Non-Af Amer) ml/min BUN/Creatinine Ratio (10-20) Glucose (70-99(Fasting)) mg/dl Calcium (8.6-10.3) mg/dl Magnesium (1.7-2.4) mg/dl Total Bilirubin (0.2-1.0) mg/dl AST (13-39) U/L ALT (7-52) U/L Alkaline Phosphatase (34-104) U/L Troponin I High Sens (0-14) pg/ml Total Protein (6.0-8.3) gm/dl Albumin (3.4-5.0) gm/dl Globulin (2.5-4.0) gm/dl Albumin/Globulin Ratio (0.9-2) Urine Color Urine Appearance (Clear) Urine pH (4.5-7.5) Ur Specific [place] (1.000-1.030) Urine Protein (Negative) Urine Glucose (UA) (Negative) Urine Ketones (Negative) Urine Blood (Negative) Urine Nitrite (Negative) Urine Bilirubin (Negative) Urine Urobilinogen (Negative) Ur Leukocyte Esterase (Negative) Urine WBC (Auto) (0-5) /hpf Urine RBC (Auto) (0-4) /hpf U Hyaline Cast (Auto) (0-5) /lpf U Epithel Cells (Auto) (0-5) /lpf Urine Bacteria (Auto) (Negative) SARS-CoV-2, RNA, NAAT NEGATIVE (NEGATIVE) Administered Medications Discontinued Medications Clonazepam (Clonazepam 0.5 Mg Tab) 0.5 mg PO NOW STA Stop: 11/20/22 19:09 Last Admin: 11/20/22 19:17 Dose: 0.5 mg Documented By: Discharge Plan Visit Data Chief Complaint: Altered Mental Status ED Provider: Leticia Navarro Discharge Problem: Need for assistance with personal care Forms Stand Alone Forms: My [facility] [employer] Prescriptions Prescriptions: No Action trazodone 50 mg tablet 25 mg PO HS atorvastatin 10 mg tablet 10 mg PO DAILY pantoprazole 40 mg tablet,delayed release (DR/EC) 40 mg PO DAILY glycopyrrolate 2 mg tablet 2 mg PO BID memantine 10 mg tablet 10 mg PO DAILY vilazodone 20 mg tablet 20 mg PO DAILY amlodipine 5 mg tablet 5 mg PO DAILY clonazepam 0.5 mg tablet 0.5 mg PO BID PRN (Reason: Anxiety) mirtazapine 7.5 mg tablet 7.5 mg PO HS Linzess 72 mcg capsule 72 mcg PO DAILY zolpidem 5 mg tablet 5 mg PO HS furosemide 20 mg tablet 20 mg PO DAILY PRN (Reason: for swelling) galantamine 16 mg capsule,ext rel. pellets 24 hr 16 mg PO DAILY Referrals Referrals: Lucrecia Lira M.D. [Primary Care Provider] -
[2022-11-20 18:37] LABS: Basophils # (auto) 0.03 K/uL (0-0.2); Basophils % (auto) 0.5 %; Eosinophils # (auto) 0.26 K/uL (0-0.50); Eosinophils % (auto) 4.3 %; Hematocrit (blood only) 34.4 % (37.0-47.0); Hemoglobin 11.5 g/dl (12.0-16.0); Immature Granulocytes # (auto) 0.01 K/uL (0.01-0.20); Immature Granulocytes % (auto) 0.2 %; Lymphocytes # (auto) 2.02 K/uL (1.2-3.4); Lymphocytes % (auto) 33.2 %; Mean Corpuscular Hemoglobin 28.9 pg (25.0-34.0); Mean Corpuscular Hgb Conc 33.4 g/dL (32.0-36.0); Mean Corpuscular Volume 86.4 fL (80.0-100.0); Mean Platelet Volume 9.8 fL (9.4-12.4); Monocytes # (auto) 0.51 K/uL (0.11-0.59); Monocytes % (auto) 8.4 %; Neutrophils # (auto) 3.26 K/uL (1.40-6.50); Neutrophils % (auto) 53.4 %; Platelet Count 200 K/uL (130-400); RDW Standard Deviation 38.5 fL (36.4-46.3); Red Blood Count 3.98 M/uL (4.20-5.40); White Blood Count 6.09 K/ul (4.8-10.8)
[2022-11-20 18:37] LABS: Appearance Urine Clear (Clear); Bacteria Urine Automated Negative (Negative); Bilirubin Urine Negative (Negative); Blood Urine 1+ (Negative); Color Urine Yellow; Glucose Urine UA Negative (Negative); Ketones Urine Negative (Negative); Leukocyte Esterase Urine Negative (Negative); Nitrite Urine Negative (Negative); Protein Urine Negative (Negative); RBC Urine Automated 0-4 /hpf (0-4); Specific Gravity Urine 1.016 (1.000-1.030); Urobilinogen Urine Negative (Negative); pH Urine 5.5 (4.5-7.5)
[2022-11-20 18:54] LABS: Albumin Globulin Ratio 1.3 (0.9-2); Albumin Level 3.9 gm/dl (3.4-5.0); BUN Creatinine Ratio 26.2 (10-20); Bilirubin,Total 0.3 mg/dl (0.2-1.0); Calcium 10.2 mg/dl (8.6-10.3); Est GFR (African American) 77.7 ml/min; Magnesium 1.9 mg/dl (1.7-2.4); Potassium 3.9 mmol/L (3.5-5.1); Total Protein 6.9 gm/dl (6.0-8.3)
[2022-11-20 19:00] LABS: Troponin I High Sensitivity 4.5 pg/ml (0-14)
[2022-11-20] MEDS ORDERED: clonazePAM 0.5 MG TAB PO STA (19:08)
--- NOTE | 2022-11-20 21:39 | History & Physical Report ---
Date of Service November 20, 2022 Assessment & Plan (1) Need for assistance with personal care: Plan: Patient is a 77-year-old female with past medical history of dementia who presents to the hospital with family for concerns regarding mental status. Patient has had a decline over the past few days to week and is requiring more jznyjb-bzq-boute care due to her needs. Patient to be admitted for med management and care coordination to care facility. -Ad[facility] to [facility] under observation -Case management consulted for urgent referral for placement, appreciate recommendations -PT and OT consulted, appreciate recs -1:1 observation (2) Dementia: Plan: -Dementia seems to have advanced to the point that the patient is a risk to herself and her family -Continue home meds where able -Frequent reorientation -Zyprexa 5 mg IM as needed for agitation and combative behavior -One-to-one observation as above -Suspect altered mental status is worsening of dementia rather than delirium as no source of delirium identified at this time -Patient on multiple serotonergic medications on admission including lurasidone, trazodone, mirtazapine -Unsure of the patient's willingness to take medications, certainly is a concern for withdrawal symptoms if patient refuses meds in house (3) Hypertension: Plan: - Continue amlodipine (4) GERD (gastroesophageal reflux disease): Plan: - Continue PPI (5) Insomnia: Plan: - Continue trazodone, hold vilazodone (NF and duplicate therapy) -Continue mirtazapine, Ambien Plan Dispo: Admit to [facility] for referral to living facility Diet: Heart healthy with safety tray DVT prophylaxis: Lovenox CODE STATUS: Full code, but recommended family have further discussion regarding goals of care History of Present Illness Chief Complaint: AMS Primary Care Provider: Lucrecia Lira Patient is a 77-year-old female with past medical history of dementia who presents to the hospital with family for concerns regarding mental status. Patient apparently has had progressively worsening mental status over the past days causing the patient to be more emotionally labile and aggressive towards the family. They come to the emergency department 4 days prior to today with imaging showing no acute changes or abnormalities. They were offered services to help the patient get placed in a home for more gkzywo-ibf-apocg care, however, patient's family declined this at the time. They are returning because she continues to be violent at home and has become too much for them to take care of her on their own. They are concerned about both their own and the patient's safety. When talking to the patient, she is initially pleasant followed by almost immediately turning angry and shouting at her bird raiser (who is obviously not there) in the hallway outside of her room. She is confused as to where she is and states that she is in a psych hospital and that the doctors are killers. No real meaningful HPI gathered at this time due to mental status. Majority of information is gathered from the patient's daughter who is present in the room. When discussing CODE STATUS with the patient's daughter, she is unsure of what her mother would want as they had never discussed it previously. Patient unable to make her own decisions at this time given cognitive status. For this reason, patient to be made full code. Allergies Allergy/AdvReac Type Severity Reaction Status Date / Time Sulfa (Sulfonamide Allergy Unknown Verified 11/15/22 20:05 Antibiotics) paroxetine [From Paxil] AdvReac neuro Verified 11/15/22 20:05 complications cold Allergy Intermediate Hives Uncoded 11/15/22 20:05 Home Medications Medication Instructions Recorded Confirmed Type atorvastatin 10 mg tablet 10 mg PO DAILY 08/11/22 11/20/22 History glycopyrrolate 2 mg tablet 2 mg PO BID 08/11/22 11/20/22 History memantine 10 mg tablet 10 mg PO DAILY 08/11/22 11/20/22 History pantoprazole 40 mg tablet,delayed 40 mg PO DAILY 08/11/22 11/20/22 History release trazodone 50 mg tablet 25 mg PO HS 08/11/22 11/20/22 History vilazodone 20 mg tablet 20 mg PO DAILY 08/11/22 11/20/22 History amlodipine 5 mg tablet 5 mg PO DAILY 08/12/22 11/20/22 History clonazepam 0.5 mg tablet 0.5 mg PO BID PRN Anxiety 08/12/22 11/20/22 History furosemide 20 mg tablet 20 mg PO DAILY PRN for swelling 11/15/22 11/15/22 History galantamine 16 mg 24 hr 16 mg PO DAILY 11/15/22 11/20/22 History capsule,extended release zolpidem 5 mg tablet 5 mg PO HS 11/15/22 11/20/22 History linaclotide 72 mcg capsule 72 mcg PO DAILY 11/20/22 11/20/22 History (Linzess) mirtazapine 7.5 mg tablet 7.5 mg PO HS 11/20/22 11/20/22 History Past Med/Surg History Medical History (Updated 11/22/22 @ 11:43 by Tej Carter MD) Dementia GERD (gastroesophageal reflux disease) Hypertension Hypothyroid Social History Smoking Status: Never smoker Second Hand Exposure: No; Do You Dip or Chew Tobacco: No; Hx Alcohol Use: No Hx Substance Use: No Preferred Language: Algerian Communication Ability: Effective Agronomy Instructor Required: No Beliefs That Will Affect Care: None Current Living Situation: Family and Other Current Living Situation Comment: Has Caregiver. Feels Safe at Home: Yes Assistive Devices: Cane Review of Systems Review of Systems: Unobtainable due to cognitive status Physical Exam Constitutional: well developed and well nourished Eyes: + anicteric sclerae Neck: trachea midline, no thyromegaly Respiratory: normal respiratory effort, lungs clear to auscultation Cardiovascular: RRR, no murmur, no edema Gastrointestinal (Abdomen): normal bowel sounds, soft, nontender, no hepatosplenomegaly Musculoskeletal: Head/Neck/Chest: normocephalic and head atraumatic Skin: no rashes, warm and dry Neurologic: + confused Psychiatric: Orientation: oriented to person; + not oriented to place and + not oriented to time Affect: + anxious affect Thought Process: + tangential thought process and + flight of ideas Results & Data Results & Data Vital Signs (Past 12 Hours) Vital Signs Temp Pulse Pulse Resp BP BP Pulse Ox 11/20/22 19:21 67 16 145/82 H 97 11/20/22 17:13 36.7 C 85 18 160/87 H 94 O2 Del Method 11/20/22 19:21 Room Air 11/20/22 17:13 Room Air Code Status & VTE Plan VTE Prophylaxis Plan VTE Prophylaxis will be ordered: Yes Supervising Physician Co-Signing Physician Notes Attending addendum: I have physically seen this patient, have supervised the medical residents activities, and agree with the H&P unless as otherwise noted. Assessment and Plan: Dementia with progressive inability to care for herself- Admit to medical surgical floor Consult case management for assistance in placement to jail Consult PT/OT 1-1 observation Continue galantamine, memantine, mirtazapine, trazodone, Valenza down and zolpidem Zyprexa 5 mg IM every 6 hours as needed for agitation Hypertension- Continue amlodipine GERD- Continue pantoprazole Remaining orders and notations as noted
[2022-11-20] MEDS ORDERED: OLANZapine 10 MG/2.1 ML SDV IM PRN (21:59)
[2022-11-20] MEDS ORDERED: clonazePAM 0.5 MG TAB PO PRN (21:59)
[2022-11-20] MEDS ORDERED: ONDANSETRON INJ 2 MG/ML 2 ML VIAL IV PRN (21:59)
[2022-11-20] MEDS: MIRTAZAPINE TAB 15 MG TAB PO SCH (23:07)
[2022-11-20] MEDS: traZODone HCL 50 MG TAB PO SCH (23:08)
[2022-11-20] MEDS: ENOXAPARIN INJ 40 MG/0.4 ML SYR SQ SCH (23:09)
[2022-11-20] MEDS: ZOLPIDEM TARTRATE 5 MG TAB PO SCH (23:11)
[2022-11-21] MEDS: ACETAMINOPHEN 325 MG TAB PO PRN (00:14)
--- NOTE | 2022-11-21 07:18 | XRay Report ---
SINGLE VIEW CHEST CLINICAL HISTORY: Change in mental status. FINDINGS: An AP, portable, upright chest radiograph is compared to study dated 11/15/2022. The heart i s enlarged noting atherosclerotic calcification of the thoracic aorta. The pulmonary vasculature is n oncongested. Chronic interstitial thickening is similar to previous. There is mild bibasilar scarring /atelectasis. No airspace consolidation or large pleural effusion is identified. There are scattered calcific granulomas. No pneumothorax is seen. The skeletal structures are osteopenic. The bony thorax is grossly intact. IMPRESSION: Mild cardiomegaly with no active disease in the chest. ACT 112: Negative or not required by law. Electronically signed by: Shekhar Morales M.D. 11/21/2022 7:17 AM
[2022-11-21] MEDS: MEMANTINE HCL 10 MG TAB PO SCH (07:34)
[2022-11-21] MEDS: linaCLOtide 72 MCG CAPSULE PO SCH (07:35)
[2022-11-21] MEDS: ATORVASTATIN 10 MG TAB PO SCH (07:35)
[2022-11-21] MEDS: PANTOprazole 40 MG TAB PO SCH (07:35)
[2022-11-21] MEDS: amLODIPine BESYLATE 5 MG TAB PO SCH (07:35)
[2022-11-21] MEDS ORDERED: MELATONIN 3 MG TAB PO PRN (10:40)
[2022-11-21] MEDS ORDERED: clonazePAM 0.5 MG TAB PO ONE (11:03)
[2022-11-21] MEDS ORDERED: PHENAZOPYRIDINE HCL 100 MG TAB PO PRN (11:55)
[2022-11-21] MEDS ORDERED: IBUPROFEN 600 MG TAB PO PRN (11:55)
--- NOTE | 2022-11-21 12:36 | Hospitalist Progress Note ---
Date of Service November 21, 2022 Assessment & Plan (1) Need for assistance with personal care: Plan: Patient is a 77-year-old female with past medical history of dementia who presents to the hospital with family for concerns regarding mental status. Patient has had a decline over the past few days to week and is requiring more sxmgbj-ojy-xstmn care due to her needs. Patient to be admitted for med management and care coordination to care facility. 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 All may be contributing (3) Hypertension: Plan: - Continue amlodipine (4) GERD (gastroesophageal reflux disease): Plan: - Continue PPI (5) Insomnia: Plan: - Continue trazodone, hold vilazodone (NF and duplicate therapy) -Continue mirtazapine, Ambien Plan Dispo: Continue hospitalization, awaiting placement Diet: Heart healthy with safety tray DVT prophylaxis: Lovenox CODE STATUS: Full code, but recommended family have further discussion regarding goals of care Admission and Anticipated Discharge Date Admission Date: November 20, 2022 Subjective Patient seen and examined, by the bedside, complains of burning although not necessarily with urination Review of Systems Review of Systems: All systems reviewed are negative, apart from the ones contained in the history. Physical Exam Physical Exam: The patient is awake, alert and oriented 3, well developed and well nourished, normocephalic and atraumatic, lying in bed and in no acute distress. HEENT--PERRL, EOMI, mucous membranes and oropharynx mildly dry Neck--supple. No JVD. No bruits. Thyroid normal, trachea midline, no adenopathy. Heart--normal S1 and S2. No murmurs, rubs or gallops. Lungs--clear bilaterally, no respiratory distress, no accessory muscle use. Abdomen--normal bowel sounds and soft. Mild epigastric and left sided abdominal pain Extremities--no cyanosis or clubbing. No edema. Dermatologic--normal skin turgor, normal color, no abnormal lymph nodes, no rash. Neurologic--cranial nerves II through XII grossly intact. Rheumatologic--normal range of motion. Psychiatric--normal affect. Results & Data Results & Data Vital Signs (Past 12 Hours) Vital Signs Temp Pulse Resp BP Pulse Ox O2 Del Method 11/21/22 05:21 97.5 F L 68 16 154/95 H 98 Room Air PG Care Time/CCT Total # of Minutes Spent Total Time Spent with Patient: Total time spent is greater than 50% in coordination of care (as documented) at patient's floor/unit and/or counseling patient: Coding Level of Care Code 76916 SUB INP/OBS CARE 2/35MIN Diagnoses Need for assistance with personal care Z74.1 Dementia F03.90 Hypertension I10 GERD (gastroesophageal reflux disease) K21.9 Insomnia G47.00 Time Spent (min) 35
[2022-11-21] MEDS: clonazePAM 0.5 MG TAB PO PRN (16:53)
[2022-11-21] MEDS: ENOXAPARIN INJ 40 MG/0.4 ML SYR SQ SCH (20:09)
[2022-11-21] MEDS: traZODone HCL 50 MG TAB PO SCH (20:11)
[2022-11-21] MEDS: MIRTAZAPINE TAB 15 MG TAB PO SCH (20:11)
[2022-11-21] MEDS: ZOLPIDEM TARTRATE 5 MG TAB PO SCH (20:12)
[2022-11-22] MEDS: ACETAMINOPHEN 325 MG TAB PO PRN (10:37)
[2022-11-22] MEDS: amLODIPine BESYLATE 5 MG TAB PO SCH (10:38)
[2022-11-22] MEDS: linaCLOtide 72 MCG CAPSULE PO SCH (10:38)
[2022-11-22] MEDS: MEMANTINE HCL 10 MG TAB PO SCH (10:38)
[2022-11-22] MEDS: ATORVASTATIN 10 MG TAB PO SCH (10:38)
[2022-11-22] MEDS: PANTOprazole 40 MG TAB PO SCH (10:38)
[2022-11-22] MEDS: clonazePAM 0.5 MG TAB PO PRN (10:56)
--- NOTE | 2022-11-22 11:44 | Hospitalist Progress Note ---
Date of Service November 22, 2022 Assessment & Plan (1) Need for assistance with personal care: Plan: Patient is a 77-year-old female with past medical history of dementia who presents to the hospital with family for concerns regarding mental status. Patient has had a decline over the past few days to week and is requiring more xujplq-yxx-gcaey care due to her needs. Patient to be admitted for med management and care coordination to care facility. -Case management consulted for referral for placement, appreciate recommendations -PT and OT consulted, appreciate recs (2) Dementia: Plan: -Dementia seems to have advanced to the point that the patient is a risk to herself and her family -Continue home meds -Frequent reorientation -Zyprexa 5 mg IM as needed for agitation and combative behavior -Patient also has a history of frequent UTIs, although urine currently did not suggest, delirium may be contributing -Patient also on a lot of DRAW OFF WORKER medicines at home, on clonazepam, mirtazapine, olanzapine, trazodone. All may be contributing -We will limits the use of D[employer] OFF WORKER medicines (3) Hypertension: Plan: - Continue amlodipine (4) GERD (gastroesophageal reflux disease): Plan: - Continue PPI (5) Insomnia: Plan: - Continue trazodone, hold vilazodone (NF and duplicate therapy) -Continue mirtazapine, Ambien (6) Burning sensation: Plan: Patient complained of burning sensation around her pubic area, although not necessarily with urination. Getting better with ibuprofen and phenazopyridine Plan Dispo: Continue hospitalization, awaiting placement Diet: Heart healthy with safety tray DVT prophylaxis: Lovenox CODE STATUS: Full code, but recommended family have further discussion regarding goals of care Admission and Anticipated Discharge Date Admission Date: November 20, 2022 Subjective Patient seen and examined, states the burning sensation she felt earlier is getting better Review of Systems Review of Systems: All systems reviewed are negative, apart from the ones contained in the history. Physical Exam Physical Exam: The patient is awake, alert and oriented 3, well developed and well nourished, normocephalic and atraumatic, lying in bed and in no acute distress. HEENT--PERRL, EOMI, mucous membranes and oropharynx mildly dry Neck--supple. No JVD. No bruits. Thyroid normal, trachea midline, no adenopathy. Heart--normal S1 and S2. No murmurs, rubs or gallops. Lungs--clear bilaterally, no respiratory distress, no accessory muscle use. Abdomen--normal bowel sounds and soft. Mild epigastric and left sided abdominal pain Extremities--no cyanosis or clubbing. No edema. Dermatologic--normal skin turgor, normal color, no abnormal lymph nodes, no rash. Neurologic--cranial nerves II through XII grossly intact. Rheumatologic--normal range of motion. Psychiatric--normal affect. Results & Data Results & Data Vital Signs (Past 12 Hours) Vital Signs Temp Pulse Resp BP Pulse Ox O2 Del Method 11/22/22 08:46 98.1 F 92 H 16 166/79 H 94 Room Air PG Care Time/CCT Total # of Minutes Spent Total Time Spent with Patient: Total time spent is greater than 50% in coordination of care (as documented) at patient's floor/unit and/or counseling patient: Coding Level of Care Code 66874 SUB INP/OBS CARE 2/35MIN Diagnoses Need for assistance with personal care Z74.1 Dementia F03.90 Hypertension I10 GERD (gastroesophageal reflux disease) K21.9 Insomnia G47.00 Burning sensation R20.8 Time Spent (min) 35
--- NOTE | 2022-11-22 12:55 | Discharge Summary ---
Date of Service November 22, 2022 Admission HPI Per Admitting Provider Patient is a 77-year-old female with past medical history of dementia who presents to the hospital with family for concerns regarding mental status. Patient apparently has had progressively worsening mental status over the past days causing the patient to be more emotionally labile and aggressive towards the family. They come to the emergency department 4 days prior to today with imaging showing no acute changes or abnormalities. They were offered services to help the patient get placed in a home for more nooamz-gqj-iofhl care, however, patient's family declined this at the time. They are returning because she continues to be violent at home and has become too much for them to take care of her on their own. They are concerned about both their own and the patient's safety. When talking to the patient, she is initially pleasant followed by almost immediately turning angry and shouting at her composition siding worker (who is obviously not there) in the hallway outside of her room. She is confused as to where she is and states that she is in a psych hospital and that the doctors are killers. No real meaningful HPI gathered at this time due to mental status. Majority of information is gathered from the patient's daughter who is present in the room. When discussing CODE STATUS with the patient's daughter, she is unsure of what her mother would want as they had never discussed it previously. Patient unable to make her own decisions at this time given cognitive status. For this reason, patient to be made full code. Principal Diagnosis dementia Discharge Exam The patient is awake, alert and oriented 3, well developed and well nourished, normocephalic and atraumatic, lying in bed and in no acute distress. HEENT--PERRL, EOMI, mucous membranes and oropharynx mildly dry Neck--supple. No JVD. No bruits. Thyroid normal, trachea midline, no adenopathy. Heart--normal S1 and S2. No murmurs, rubs or gallops. Lungs--clear bilaterally, no respiratory distress, no accessory muscle use. Abdomen--normal bowel sounds and soft. Mild epigastric and left sided abdominal pain Extremities--no cyanosis or clubbing. No edema. Dermatologic--normal skin turgor, normal color, no abnormal lymph nodes, no rash. Neurologic--cranial nerves II through XII grossly intact. Rheumatologic--normal range of motion. Psychiatric--normal affect. Discharge Data Allergies Allergy/AdvReac Type Severity Reaction Status Date / Time Sulfa (Sulfonamide Allergy Unknown Verified 11/15/22 20:05 Antibiotics) paroxetine [From Paxil] AdvReac neuro Verified 11/15/22 20:05 complications cold Allergy Intermediate Hives Uncoded 11/15/22 20:05 Consultations 11/20/22 20:20 ED Decision to Admit Stat Hospital Course (1) Need for assistance with personal care: Patient is a 77-year-old female with past medical history of dementia who presents to the hospital with family for concerns regarding mental status. Patient has had a decline over the past few days to week and is requiring more puhoqw-tgh-zhyhj care due to her needs. Patient to be admitted for med management and care coordination to care facility. -Case management consulted for referral for placement, appreciate recommendations -PT and OT consulted, appreciate recs (2) Dementia: -Dementia seems to have advanced to the point that the patient is a risk to herself and her family -Continue home meds -Frequent reorientation -Zyprexa 5 mg IM as needed for agitation and combative behavior -Patient also has a history of frequent UTIs, although urine currently did not suggest, delirium may be contributing -Patient also on a lot of SKEIN W[employer]ER medicines at home, on clonazepam, mirtazapine, olanzapine, trazodone. All may be contributing -We will limits the use of SKE[employer] W[employer]ER medicines (3) Hypertension: - Continue amlodipine (4) GERD (gastroesophageal reflux disease): - Continue PPI (5) Insomnia: - Continue trazodone, hold vilazodone (NF and duplicate therapy) -Continue mirtazapine, Ambien (6) Burning sensation: Patient complained of burning sensation around her pubic area, although not necessarily with urination. Getting better with ibuprofen and phenazopyridine Plan Dispo: Family decided to take the patient home instead of looking for placement Diet: Heart healthy with safety tray DVT prophylaxis: Lovenox CODE STATUS: Full code, but recommended family have further discussion regarding goals of care Total Time Total Time Spent Total Time Spent (In Minutes): 35 Discharge Plan Discharge Items Patient Disposition: Home - Self-Care Reason For Visit: AMS Discharge Diagnosis: Dementia Activity: Resume your previous activity Non-emergency contact: Primary Care Provider Call non-emergency contact if: you have any medication questions Follow-up/Referrals: Pankaj,Lucrecia F., M.D. [Primary Care Provider] - Diet: Regular Addtl Attending Provider Instructions: please follow up with your regular PCP Pending Studies at Discharge: No Stand-Alone Forms: My [facility], Smoking Cessation Medications and DC Order Prescriptions: Continued trazodone 50 mg tablet 25 mg PO HS atorvastatin 10 mg tablet 10 mg PO DAILY pantoprazole 40 mg tablet,delayed release (DR/EC) 40 mg PO DAILY glycopyrrolate 2 mg tablet 2 mg PO BID memantine 10 mg tablet 10 mg PO DAILY vilazodone 20 mg tablet 20 mg PO DAILY amlodipine 5 mg tablet 5 mg PO DAILY clonazepam 0.5 mg tablet 0.5 mg PO BID PRN (Reason: Anxiety) mirtazapine 7.5 mg tablet 7.5 mg PO HS Linzess 72 mcg capsule 72 mcg PO DAILY zolpidem 5 mg tablet 5 mg PO HS furosemide 20 mg tablet 20 mg PO DAILY PRN (Reason: for swelling) galantamine 16 mg capsule,ext rel. pellets 24 hr 16 mg PO DAILY Admission Data Admit Date/Time: 11/20/22 21:00 Attending Provider: Tej Carter Admit Provider: Mika Kaminski Primary Care Provider: Lucrecia Lira Other Providers: Flavio Ribeiro Coding Level of Care Code 95404 INP/OBS DISCH >30 MIN Diagnoses Need for assistance with personal care Z74.1 Dementia F03.90 Hypertension I10 GERD (gastroesophageal reflux disease) K21.9 Insomnia G47.00 Burning sensation R20.8 Time Spent (min) 35
--- NOTE | 2022-11-22 23:03 | Electrocardiogram Report ---
Test Reason : Blood Pressure : / mmHG Vent. Rate : 070 BPM Atrial Rate : 070 BPM P-R Int : 154 ms QRS Dur : 082 ms QT Int : 396 ms P-R-T Axes : 078 025 020 degrees QTc Int : 427 ms Sinus rhythm with Premature atrial complexes Nonspecific ST abnormality Abnormal ECG When compared with ECG of 15-NOV-2022 19:40, Premature atrial complexes are now Present Confirmed by Chava Velazquez ([id number]) on 11/22/2022 11:03:19 PM Referred By: REFERRED SELF Confirmed By:Chava Velazquez
--- NOTE | 2022-11-23 | Billing Data ---
Date of Service November 22, 2022 Coding Level of Care Code 46376 INT INP/OBS CARE
== END 2022-11-22 14:01 | disposition home or self-care (01) ==
LOC: ED 17:05 → INTOOBSV 21:00 → SUATTDRO 21:00 → 3N 21:00 → 3W 11-21 01:45